=== PATIENT | female | born 1960 | race African-American/Black ===

== ENCOUNTER → 2016-07-25 | Outpatient (CLI) | payer MEDICARE ==
[2016-07-25 12:26] LABS: Basophils # (auto) 0 uL; Basophils % (auto) 0.5 % (0.0-2.0); Eosinophils # (auto) 0.1 uL; Eosinophils % (auto) 1.8 % (0.0-7.0); Hematocrit 41.1 % (36.0-46.0); Hemoglobin 13.5 g/dL (12.2-16.2); Lymphocytes # (auto) 1.6 uL; Lymphocytes % (auto) 41.9 % (10.0-50.0); Mean Corpuscular Hemoglobin 30.8 pg (28.0-32.0); Mean Corpuscular Hgb Conc. 32.8 g/dL (32.0-36.0); Mean Platelet Volume 8.6 fL (7.4-10.4); Monocytes # (auto) 0.3 uL; Monocytes % (auto) 8.7 % (0.0-12.0); Neutrophils # (auto) 1.8 uL; Neutrophils % (auto) 47.1 % (37.0-80.0); Platelet Count (auto) 228 10^3/uL (140-450); White Blood Cell 3.8 10^3/uL (4.4-10.8)
[2016-07-25 13:08] LABS: Albumin 3.7 g/dL (3.4-5.0); BUN/Creatinine Ratio 14.3; Bilirubin, Total 0.4 mg/dL (0.2-1.0); Calcium 8.9 mg/dL (8.5-10.1); Potassium 3.7 mmol/L (3.5-5.1); Total Protein 7.5 g/dL (6.4-8.2)
[2016-07-25 13:30] LABS: Urine Bilirubin Negative (Negative); Urine Blood Negative /uL (Negative); Urine Color Yellow (Yellow); Urine Glucose Normal (Normal); Urine Ketone Negative (Negative); Urine Mucus FEW (None Seen); Urine Nitrite Negative (Negative); Urine RBC 1 /hpf (0 - 4); Urine Squamous Epithelial Cell MOD /hpf (<5); Urine pH 6.5 (5.0-8.0)
== END | disposition home or self-care (01) ==
LOC: LAB 11:28
PROVIDERS: ATTEND Internal Medicine
DX: Z00.00 Encounter for general adult medical examination without abnormal findings (principal); I10 Essential (primary) hypertension; E11.9 Type 2 diabetes mellitus without complications
CPT/HCPCS: 36415; 80053; 80061; 81001; 82043; 83036; 84443; 85025

== ENCOUNTER → 2018-07-03 | Outpatient (CLI) | payer MEDICARE, MEDICAID ==
[2018-07-03 08:48] LABS: Basophils # (auto) 0 uL; Basophils % (auto) 1.2 % (0.0-2.0); Eosinophils # (auto) 0.1 uL; Eosinophils % (auto) 1.9 % (0.0-7.0); Hematocrit 44.1 % (36.0-46.0); Hemoglobin 14.5 g/dL (12.2-16.2); Lymphocytes # (auto) 1.1 uL; Lymphocytes % (auto) 31.2 % (10.0-50.0); Mean Corpuscular Hemoglobin 31.2 pg (28.0-32.0); Mean Corpuscular Hgb Conc. 32.9 g/dL (32.0-36.0); Monocytes # (auto) 0.3 uL; Monocytes % (auto) 9.3 % (0.0-12.0); Neutrophils % (auto) 56.4 % (37.0-80.0); Platelet Count (auto) 177 10^3/uL (140-450); Red Blood Cells 4.64 10^6/uL (4.0-5.20); White Blood Cell 3.6 10^3/uL (4.4-10.8)
[2018-07-03 09:56] LABS: Albumin 4.1 g/dL (3.4-5.0); Potassium 3.9 mmol/L (3.5-5.1)
[2018-07-03 10:04] LABS: BUN/Creatinine Ratio 15.9; Bilirubin, Total 0.7 mg/dL (0.2-1.0); Calcium 9.8 mg/dL (8.5-10.1); Total Protein 8.1 g/dL (6.4-8.2)
== END | disposition home or self-care (01) ==
LOC: LAB 08:22
PROVIDERS: ATTEND Physician Assistant
DX: E11.9 Type 2 diabetes mellitus without complications (principal); E78.2 Mixed hyperlipidemia; I10 Essential (primary) hypertension; M65.20 Calcific tendinitis, unspecified site
CPT/HCPCS: 36415; 80053; 80061; 83036; 85025

== ENCOUNTER 2018-08-24 11:41 | Emergency (ER) | payer MEDICARE, MEDICAID ==
[~2018-08-24] VITALS: Ht 152.4 cm; Wt 76.7 kg
[2018-08-24] MEDS ORDERED: ASPirin 81 mg TAB PO ONE ×3 (11:45→13:15)
[2018-08-24 12:12] LABS: Basophils # (auto) 0 uL; Basophils % (auto) 0.6 % (0.0-2.0); Eosinophils # (auto) 0 uL; Eosinophils % (auto) 0.7 % (0.0-7.0); Hematocrit 43.4 % (36.0-46.0); Hemoglobin 14.3 g/dL (12.2-16.2); Lymphocytes # (auto) 1.4 uL; Lymphocytes % (auto) 30.8 % (10.0-50.0); Mean Corpuscular Hemoglobin 31.8 pg (28.0-32.0); Mean Corpuscular Hgb Conc. 32.9 g/dL (32.0-36.0); Mean Corpuscular Volume 96.6 fL (80.0-100.0); Monocytes # (auto) 0.3 uL; Monocytes % (auto) 6.2 % (0.0-12.0); Neutrophils # (auto) 2.8 uL; Neutrophils % (auto) 61.7 % (37.0-80.0); Nucleated Red Blood Cells % 0.2 %; Platelet Count (auto) 204 10^3/uL (140-450); Red Cell Distribution Width 15.4 % (11.8-14.3); White Blood Cell 4.6 10^3/uL (4.4-10.8)
[2018-08-24 12:29] LABS: Alanine Aminotransferase 98 U/L (13-56); Albumin 4.4 g/dL (3.4-5.0); Anion Gap 8 (5-15); Blood Urea Nitrogen 16 mg/dL (7-18); Calcium 9.5 mg/dL (8.5-10.1); Carbon Dioxide 29 mmol/L (21-32); Chloride 104 mmol/L (98-107); Glucose 97 mg/dL (74-106); Magnesium 2.1 mg/dL (1.6-2.6); Potassium 3.8 mmol/L (3.5-5.1); Sodium 141 mmol/L (136-145)
[2018-08-24 12:34] LABS: Alkaline Phosphatase 68 U/L (45-117); Aspartate Aminotransferase 59 U/L (15-37); BUN/Creatinine Ratio 19.5; Bilirubin, Total 0.7 mg/dL (0.2-1.0); GFR African American 92 mL/min; GFR Non-African American 76 mL/min; Total Protein 8.4 g/dL (6.4-8.2)
[2018-08-24 15:21] VITALS: BP 131/84
== END 2018-08-24 16:59 | disposition left against medical advice (07) ==
LOC: ER 11:43
DX: R07.9 Chest pain, unspecified (principal); E11.9 Type 2 diabetes mellitus without complications; E78.5 Hyperlipidemia, unspecified; I10 Essential (primary) hypertension; Z91.018 Allergy to other foods
CPT/HCPCS: 36415; 71046; 80053; 83735; 84484; 85025; 93005

== ENCOUNTER → 2018-10-12 | Outpatient (CLI) | payer MEDICARE, MEDICAID ==
[2018-10-12 10:30] LABS: Basophils # (auto) 0 uL; Eosinophils # (auto) 0.1 uL; Hematocrit 40.6 % (36.0-46.0); Hemoglobin 13.4 g/dL (12.2-16.2); Lymphocytes # (auto) 1.5 uL; Mean Corpuscular Hemoglobin 31.8 pg (28.0-32.0); Mean Corpuscular Hgb Conc. 33.1 g/dL (32.0-36.0); Mean Corpuscular Volume 96.1 fL (80.0-100.0); Monocytes # (auto) 0.4 uL; Nucleated Red Blood Cells % 0.1 %; Platelet Count (auto) 210 10^3/uL (140-450); Red Blood Cells 4.22 10^6/uL (4.0-5.20); Red Cell Distribution Width 14.2 % (11.8-14.3)
[2018-10-12 10:57] LABS: Albumin 3.8 g/dL (3.4-5.0); Calcium 9.4 mg/dL (8.5-10.1)
[2018-10-12 11:01] LABS: BUN/Creatinine Ratio 23.7; Bilirubin, Total 0.3 mg/dL (0.2-1.0); Total Protein 7.2 g/dL (6.4-8.2)
== END | disposition home or self-care (01) ==
LOC: LAB 09:33
PROVIDERS: ATTEND Internal Medicine
DX: E78.2 Mixed hyperlipidemia (principal); E11.9 Type 2 diabetes mellitus without complications; R07.89 Other chest pain
CPT/HCPCS: 36415; 80053; 84443; 85025

== ENCOUNTER → 2018-10-31 | Outpatient (CLI) | payer MEDICARE, MEDICAID | END | disposition home or self-care (01) | LOC: XYW 09:27 | PROVIDERS: ATTEND Internal Medicine | DX: R07.9 Chest pain, unspecified (principal) | CPT/HCPCS: 93306 ==

== ENCOUNTER → 2020-12-14 | Outpatient (CLI) | payer MEDICAID, MEDICARE, OTHER ==
[2020-12-14 12:20] LABS: Basophils # (auto) 0 10 ^3/uL (0-0.2); Basophils % (auto) 0.7 % (0.0-2.0); Eosinophils # (auto) 0.1 10 ^3/uL (0-0.8); Eosinophils % (auto) 2.4 % (0.0-7.0); Hematocrit 41.3 % (36.0-46.0); Hemoglobin 13.6 g/dL (12.2-16.2); Lymphocytes # (auto) 1.3 10 ^3/uL (0.4-5.4); Lymphocytes % (auto) 42.5 % (10.0-50.0); Mean Corpuscular Hemoglobin 31.4 pg (28.0-32.0); Mean Corpuscular Hgb Conc. 32.9 g/dL (32.0-36.0); Mean Corpuscular Volume 95.3 fL (80.0-100.0); Monocytes # (auto) 0.3 10 ^3/uL (0-1.3); Monocytes % (auto) 8.7 % (0.0-12.0); Neutrophils # (auto) 1.4 10 ^3/uL (1.6-8.6); Neutrophils % (auto) 45.7 % (37.0-80.0); Red Blood Cells 4.33 10^6/uL (4.0-5.20); Red Cell Distribution Width 14.7 % (11.8-14.3); White Blood Cell 3.1 10^3/uL (4.4-10.8)
[2020-12-14 13:19] LABS: Albumin 3.5 g/dL (3.4-5.0); Calcium 9.4 mg/dL (8.5-10.1); Potassium 3.5 mmol/L (3.5-5.1)
[2020-12-14 13:23] LABS: BUN/Creatinine Ratio 26.1; Bilirubin, Total 0.7 mg/dL (0.2-1.0); Total Protein 7.9 g/dL (6.4-8.2)
== END | disposition home or self-care (01) ==
LOC: LAB 11:56
PROVIDERS: ATTEND Nurse Practitioner Family
DX: Z12.11 Encounter for screening for malignant neoplasm of colon (principal); I10 Essential (primary) hypertension; E11.9 Type 2 diabetes mellitus without complications; E78.2 Mixed hyperlipidemia
CPT/HCPCS: 36415; 80053; 80061; 82043; 83036; 85025

== ENCOUNTER 2021-05-18 16:16 | Emergency (ER) | payer OTHER, MEDICAID, MEDICARE ==
[~2021-05-18] VITALS: Ht 152.4 cm; Wt 77.1 kg
[2021-05-19] MEDS ORDERED: ALBUAER3 IN (07:59)
[2021-05-19] MEDS ORDERED: PRED10TA PO (07:59)
[2021-05-19] MEDS ORDERED: DOXY-286 PO (07:59)
[2021-05-19 08:13] VITALS: BP 187/91
== END 2021-05-19 08:19 | disposition home or self-care (01) ==
LOC: ER 16:16
DX: U07.1 COVID-19 (principal); J06.9 Acute upper respiratory infection, unspecified
CPT/HCPCS: 36415; 87426

== ENCOUNTER 2021-05-25 07:02 | Emergency (ER) | payer OTHER, MEDICAID ==
[~2021-05-25] VITALS: Ht 152.4 cm; Wt 75.3 kg
[~2021-05-25 07:02] MED LIST: ALBUAER3 IN; DOXY-286 PO; PRED10TA PO
[2021-05-25 08:02] VITALS: BP 178/86
[2021-05-25] MEDS ORDERED: AZIT500T66 PO (08:15)
[2021-05-25] MEDS ORDERED: cefTRIAXone SOD 1,000 MG VL IM ONE (08:15)
[2021-05-25] MEDS ORDERED: METH4PAK PO (08:15)
== END 2021-05-25 08:25 | disposition home or self-care (01) ==
LOC: ER 07:02
DX: U07.1 COVID-19 (principal); J03.90 Acute tonsillitis, unspecified; E11.9 Type 2 diabetes mellitus without complications; I10 Essential (primary) hypertension; E78.5 Hyperlipidemia, unspecified
CPT/HCPCS: 71045; 96372; 99283; J0696

== ENCOUNTER 2021-06-07 03:20 | Emergency (ER) | payer OTHER, MEDICAID ==
[~2021-06-07] VITALS: Ht 152.4 cm; Wt 77.1 kg
[~2021-06-07 03:20] MED LIST changes: +AZIT500T66 PO; +METH4PAK PO
[2021-06-07 05:10] LABS: Basophils # (auto) 0 10 ^3/uL (0-0.2); Basophils % (auto) 0.5 % (0.0-2.0); Eosinophils # (auto) 0.1 10 ^3/uL (0-0.8); Eosinophils % (auto) 0.9 % (0.0-7.0); Hematocrit 41.4 % (36.0-46.0); Hemoglobin 13.6 g/dL (12.2-16.2); Lymphocytes # (auto) 1.3 10 ^3/uL (0.4-5.4); Lymphocytes % (auto) 22.7 % (10.0-50.0); Mean Corpuscular Hemoglobin 31.4 pg (28.0-32.0); Mean Corpuscular Hgb Conc. 32.8 g/dL (32.0-36.0); Mean Corpuscular Volume 95.9 fL (80.0-100.0); Monocytes # (auto) 0.4 10 ^3/uL (0-1.3); Monocytes % (auto) 7.2 % (0.0-12.0); Neutrophils # (auto) 3.9 10 ^3/uL (1.6-8.6); Neutrophils % (auto) 68.7 % (37.0-80.0); Nucleated Red Blood Cells % 0.1 %; Red Blood Cells 4.31 10^6/uL (4.0-5.20); Red Cell Distribution Width 13.8 % (11.8-14.3); White Blood Cell 5.7 10^3/uL (4.4-10.8)
[2021-06-07 05:22] LABS: Potassium 3.8 mmol/L (3.5-5.1)
[2021-06-07 05:33] LABS: Albumin 3.8 g/dL (3.4-5.0); BUN/Creatinine Ratio 17.5; Bilirubin, Total 0.2 mg/dL (0.2-1.0); Calcium 9.1 mg/dL (8.5-10.1); Total Protein 7.6 g/dL (6.4-8.2)
[2021-06-07 10:32] VITALS: BP 144/82
[2021-06-07] MEDS ORDERED: PANT40TA2 PO (11:45)
== END 2021-06-07 13:16 | disposition home or self-care (01) ==
LOC: ER 03:20
DX: K29.70 Gastritis, unspecified, without bleeding (principal); E11.9 Type 2 diabetes mellitus without complications; I10 Essential (primary) hypertension; E78.5 Hyperlipidemia, unspecified; Z20.822 Contact with and (suspected) exposure to COVID-19; Z90.710 Acquired absence of both cervix and uterus; Z98.890 Other specified postprocedural states
CPT/HCPCS: 36415; 71045; 80053; 84484; 85025; 87426; 93005

== ENCOUNTER 2021-07-07 17:35 | Emergency (ER) | payer OTHER, MEDICAID ==
[~2021-07-07] VITALS: Ht 152.4 cm; Wt 78.0 kg
[~2021-07-07 17:35] MED LIST changes: +PANT40TA2 PO
[2021-07-07] MEDS ORDERED: METOCLOPRAMIDE HCL 5MG/ml INJ 2ml VIAL IM ONE (20:45)
[2021-07-07] MEDS ORDERED: KETOROLAC TROMETH 30 MG/ML 1ML VIAL IM ONE (20:45)
[2021-07-07 21:50] VITALS: BP 173/83
== END 2021-07-07 21:50 | disposition home or self-care (01) ==
LOC: ER 17:35
DX: I10 Essential (primary) hypertension (principal); R51.9 Headache, unspecified; E11.9 Type 2 diabetes mellitus without complications; E78.5 Hyperlipidemia, unspecified; Z90.710 Acquired absence of both cervix and uterus; Z79.899 Other long term (current) drug therapy
CPT/HCPCS: 93005; 96372; 99284; J1885; J2765

== ENCOUNTER 2021-08-28 08:23 | Emergency (ER) | payer OTHER, MEDICAID ==
[~2021-08-28] VITALS: Ht 152.4 cm; Wt 73.5 kg
[2021-08-28] MEDS ORDERED: ASPirin 81 mg TAB PO ONE (08:45)
[2021-08-28] MEDS ORDERED: NITROGLYCERIN 0.4 MG SL TAB SL ONE (09:15)
[2021-08-28 09:37] VITALS: BP 105/54
[2021-08-28 10:16] LABS: Albumin 3.7 g/dL (3.4-5.0); Calcium 9.6 mg/dL (8.5-10.1); Potassium 3.3 mmol/L (3.5-5.1)
[2021-08-28 10:18] LABS: Basophils # (auto) 0 10 ^3/uL (0-0.2); Basophils % (auto) 0.4 % (0.0-2.0); Eosinophils # (auto) 0 10 ^3/uL (0-0.8); Hemoglobin 13.4 g/dL (12.2-16.2); Lymphocytes # (auto) 1.2 10 ^3/uL (0.4-5.4); Lymphocytes % (auto) 30.5 % (10.0-50.0); Mean Corpuscular Hemoglobin 31.2 pg (28.0-32.0); Mean Corpuscular Hgb Conc. 33.4 g/dL (32.0-36.0); Mean Corpuscular Volume 93.3 fL (80.0-100.0); Monocytes # (auto) 0.3 10 ^3/uL (0-1.3); Monocytes % (auto) 8.7 % (0.0-12.0); Neutrophils # (auto) 2.3 10 ^3/uL (1.6-8.6); Neutrophils % (auto) 59.4 % (37.0-80.0); Nucleated Red Blood Cells % 0.1 %; Red Blood Cells 4.29 10^6/uL (4.0-5.20); Red Cell Distribution Width 13.1 % (11.8-14.3); White Blood Cell 3.8 10^3/uL (4.4-10.8)
[2021-08-28 10:20] LABS: BUN/Creatinine Ratio 20.8; Bilirubin, Total 0.4 mg/dL (0.2-1.0); Total Protein 7.7 g/dL (6.4-8.2)
[2021-08-28] MEDS ORDERED: POTASSIUM EFFERVESENT TAB 25 MEQ PO ONE (11:00)
== END 2021-08-28 12:15 | disposition home or self-care (01) ==
LOC: ER 08:23
DX: R07.89 Other chest pain (principal); I10 Essential (primary) hypertension; E87.6 Hypokalemia; E11.9 Type 2 diabetes mellitus without complications; E78.5 Hyperlipidemia, unspecified; Z90.710 Acquired absence of both cervix and uterus; Z79.2 Long term (current) use of antibiotics; Z79.899 Other long term (current) drug therapy; Z91.018 Allergy to other foods
CPT/HCPCS: 36415; 71045; 80053; 83880; 84484; 85025; 93005

== ENCOUNTER → 2021-09-16 | Outpatient (CLI) | payer OTHER, MEDICAID, MEDICARE ==
[2021-09-16 11:48] LABS: Albumin 3.9 g/dL (3.4-5.0); Calcium 9.8 mg/dL (8.5-10.1); Potassium 3.8 mmol/L (3.5-5.1)
[2021-09-16 11:52] LABS: BUN/Creatinine Ratio 16.9; Bilirubin, Total 0.5 mg/dL (0.2-1.0); Total Protein 8.2 g/dL (6.4-8.2)
== END | disposition home or self-care (01) ==
LOC: LAB 11:08
PROVIDERS: ATTEND Nurse Practitioner Family
DX: E78.6 Lipoprotein deficiency (principal)
CPT/HCPCS: 36415; 80053

== ENCOUNTER 2021-09-27 15:31 | Inpatient (IN) | payer OTHER, MEDICAID ==
[~2021-09-27] VITALS: Ht 152.4 cm; Wt 80.3 kg
[2021-09-27] MEDS ORDERED: ASPirin 81 mg TAB PO ONE (15:45)
[2021-09-27 16:54] LABS: Basophils # (auto) 0 10 ^3/uL (0-0.2); Basophils % (auto) 0.5 % (0.0-2.0); Eosinophils # (auto) 0.2 10 ^3/uL (0-0.8); Eosinophils % (auto) 3.9 % (0.0-7.0); Hematocrit 38.5 % (36.0-46.0); Hemoglobin 12.9 g/dL (12.2-16.2); Lymphocytes # (auto) 1.5 10 ^3/uL (0.4-5.4); Lymphocytes % (auto) 34.2 % (10.0-50.0); Mean Corpuscular Hemoglobin 31.4 pg (28.0-32.0); Mean Corpuscular Hgb Conc. 33.4 g/dL (32.0-36.0); Mean Corpuscular Volume 94.1 fL (80.0-100.0); Monocytes # (auto) 0.4 10 ^3/uL (0-1.3); Monocytes % (auto) 9.1 % (0.0-12.0); Neutrophils # (auto) 2.2 10 ^3/uL (1.6-8.6); Neutrophils % (auto) 52.3 % (37.0-80.0); Nucleated Red Blood Cells % 0.1 %; Red Cell Distribution Width 14.2 % (11.8-14.3); White Blood Cell 4.3 10^3/uL (4.4-10.8)
[2021-09-27 17:06] LABS: Albumin 3.6 g/dL (3.4-5.0); Calcium 9.4 mg/dL (8.5-10.1); Potassium 4.1 mmol/L (3.5-5.1)
[2021-09-27 17:08] LABS: BUN/Creatinine Ratio 18.3
[2021-09-27 17:11] LABS: Bilirubin, Total 0.4 mg/dL (0.2-1.0); Total Protein 7.1 g/dL (6.4-8.2)
[2021-09-27] MEDS ORDERED: NITROGLYCERIN 0.4 MG SL TAB SL ONE (17:30)
[2021-09-28 02:12] LABS: Urine Bacteria NONE SEEN /hpf (None Seen); Urine Blood Negative /uL (Negative); Urine Specific Gravity 1.014 (1.001-1.035); Urine WBC <1 /hpf (0 - 5)
[2021-09-28] MEDS ORDERED: NITROGLYCERIN 0.4 MG SL TAB SL PRN (03:00)
[2021-09-28] MEDS ORDERED: MORPHINE SULFATE INJECTION 2 MG/ML SYRG IV PRN (03:00)
[2021-09-28] MEDS ORDERED: ACETAMINOPHEN 325 MG TAB PO PRN (03:00)
[2021-09-28] MEDS ORDERED: ONDANSETRON HCL 4 MG/2 ML VIAL IV PRN (03:00)
[2021-09-28 05:29] VITALS: BP 114/59
[2021-09-28 05:44] VITALS: BP 114/59
[2021-09-28 08:59] VITALS: BP 111/55
[2021-09-28] MEDS: PANTOPRAZOLE 40 MG TAB PO SCH (10:45)
[2021-09-28] MEDS: ASPirin 81 mg TAB PO SCH (10:45)
[2021-09-28] MEDS: ENOXAPARIN SOD 40 MG/0.4 ML SYRINGE SC SCH (10:45)
[2021-09-28] MEDS: HCTZ 25 MG TAB PO SCH (10:47)
[2021-09-28] MEDS: LOSARTAN POTASSIUM 25 MG TAB PO SCH (13:00)
[2021-09-28 13:09] VITALS: BP 105/60
[2021-09-28 15:41] LABS: Alcohol, Urine < 3.0 mg/dL (0-10); Amphetamine Screen, Urine NEGATIVE (NEGATIVE); Barbiturate Scree,Urine NEGATIVE (NEGATIVE); Benzodiazephine Screen, Urine NEGATIVE (NEGATIVE); Cannabinoid Screen, Urine POSITIVE (NEGATIVE); Cocaine Screen, Urine NEGATIVE (NEGATIVE); Opiate Scree,Urine NEGATIVE (NEGATIVE); Phencyclidine Screen, Urine NEGATIVE (NEGATIVE)
[2021-09-28 17:05] VITALS: BP 103/56
[2021-09-28 19:21] LABS: Cholesterol 167 mg/dL (< 200); HDL Cholesterol 68 mg/dL (40-59); LDL Cholesterol 90 mg/dL (< 100); Triglycerides 76 mg/dL (< 150)
[2021-09-28] MEDS ORDERED: ATORVASTATIN 20 MG TAB PO SCH (22:00)
[2021-09-29] MEDS ORDERED: ADENOSINE 67 MG in GIVE UN-DILUTED 0 ML IV ONE (07:45)
[2021-09-29 08:50] VITALS: BP 109/54
[2021-09-29 08:55] LABS: Basophils # (auto) 0 10 ^3/uL (0-0.2); Basophils % (auto) 0.5 % (0.0-2.0); Eosinophils # (auto) 0.1 10 ^3/uL (0-0.8); Eosinophils % (auto) 2.9 % (0.0-7.0); Hematocrit 41.7 % (36.0-46.0); Lymphocytes # (auto) 1.8 10 ^3/uL (0.4-5.4); Lymphocytes % (auto) 38.6 % (10.0-50.0); Mean Corpuscular Hemoglobin 31.9 pg (28.0-32.0); Mean Corpuscular Hgb Conc. 34.1 g/dL (32.0-36.0); Mean Corpuscular Volume 93.6 fL (80.0-100.0); Monocytes # (auto) 0.3 10 ^3/uL (0-1.3); Neutrophils # (auto) 2.4 10 ^3/uL (1.6-8.6); Nucleated Red Blood Cells % 0.2 %; Red Blood Cells 4.46 10^6/uL (4.0-5.20); Red Cell Distribution Width 14.1 % (11.8-14.3); White Blood Cell 4.7 10^3/uL (4.4-10.8)
[2021-09-29 08:57] LABS: BUN/Creatinine Ratio 23.8; Calcium 9.1 mg/dL (8.5-10.1); Potassium 3.5 mmol/L (3.5-5.1)
[2021-09-29 09:05] LABS: Hemoglobin 14.2 g/dL (12.2-16.2)
[2021-09-29] MEDS: PANTOPRAZOLE 40 MG TAB PO SCH (09:59)
[2021-09-29] MEDS: HCTZ 25 MG TAB PO SCH (10:00)
[2021-09-29] MEDS: LOSARTAN POTASSIUM 25 MG TAB PO SCH (10:01)
[2021-09-29] MEDS: ASPirin 81 mg TAB PO SCH (10:02)
[2021-09-29] MEDS: ENOXAPARIN SOD 40 MG/0.4 ML SYRINGE SC SCH (10:03)
[2021-09-29] MEDS ORDERED: ERGOCALCIFEROL 50,000 UNIT(1.25MG) CAP PO SCH (10:15)
[2021-09-29] MEDS ORDERED: LOS25T PO (10:16)
[2021-09-29] MEDS ORDERED: ASPI1CHW15 PO (10:16)
[2021-09-29] MEDS ORDERED: ERGO1CAP23 PO (10:16)
[2021-09-29] MEDS ORDERED: ATOR20TA50 PO (10:16)
== END 2021-09-29 13:53 | disposition home or self-care (01) | DRG 303 ==
LOC: ER 15:31 → TELE 09-28 02:58 → TELE-EAST 09-28 04:15
PROVIDERS: ADMIT Nurse Practitioner; ATTEND Internal Medicine
DX: I25.110 Atherosclerotic heart disease of native coronary artery with unstable angina pectoris (principal); I13.0 Hypertensive heart and chronic kidney disease with heart failure and stage 1 through stage 4 chronic kidney disease, or unspecified chronic kidney disease; E66.9 Obesity, unspecified; E55.9 Vitamin D deficiency, unspecified; E11.22 Type 2 diabetes mellitus with diabetic chronic kidney disease; E78.5 Hyperlipidemia, unspecified; I50.9 Heart failure, unspecified; N18.9 Chronic kidney disease, unspecified; F41.9 Anxiety disorder, unspecified; Z20.822 Contact with and (suspected) exposure to COVID-19; Z90.710 Acquired absence of both cervix and uterus; Z91.018 Allergy to other foods; Z68.34 Body mass index [BMI] 34.0-34.9, adult
CPT/HCPCS: 36415; 71045; 78452; 80048; 80053; 80061; 80307; 81001; 82043; 82306; 83036; 84443; 84484; 85025; 85379; 93017; 93306; 96365; G0378; J0153

== ENCOUNTER 2021-10-06 21:28 | Emergency (ER) | payer OTHER, MEDICAID ==
[~2021-10-06] VITALS: Ht 152.4 cm; Wt 77.1 kg
[~2021-10-06 21:28] MED LIST changes: -ALBUAER3 IN; +ASPI1CHW15 PO; +ATOR20TA50 PO; -AZIT500T66 PO; +ERGO1CAP23 PO; +LOS25T PO; -METH4PAK PO; -PANT40TA2 PO; -PRED10TA PO
[2021-10-06 21:48] VITALS: BP 135/81
== END 2021-10-06 22:22 | disposition left against medical advice (07) ==
LOC: ER 21:28
DX: R22.0 Localized swelling, mass and lump, head (principal); R13.10 Dysphagia, unspecified; Z53.21 Procedure and treatment not carried out due to patient leaving prior to being seen by health care provider

== ENCOUNTER → 2021-11-11 | Outpatient (CLI) | payer OTHER ==
[2021-11-11 12:18] LABS: Basophils # (auto) 0 10 ^3/uL (0-0.2); Basophils % (auto) 0.5 % (0.0-2.0); Eosinophils # (auto) 0.1 10 ^3/uL (0-0.8); Eosinophils % (auto) 2.4 % (0.0-7.0); Hematocrit 41.2 % (36.0-46.0); Hemoglobin 13.2 g/dL (12.2-16.2); Lymphocytes # (auto) 1.1 10 ^3/uL (0.4-5.4); Lymphocytes % (auto) 40.4 % (10.0-50.0); Mean Corpuscular Hgb Conc. 32.1 g/dL (32.0-36.0); Mean Corpuscular Volume 93.3 fL (80.0-100.0); Monocytes # (auto) 0.3 10 ^3/uL (0-1.3); Monocytes % (auto) 11.6 % (0.0-12.0); Neutrophils # (auto) 1.2 10 ^3/uL (1.6-8.6); Neutrophils % (auto) 45.1 % (37.0-80.0); Red Blood Cells 4.42 10^6/uL (4.0-5.20); Red Cell Distribution Width 13.9 % (11.8-14.3); White Blood Cell 2.7 10^3/uL (4.4-10.8)
[2021-11-11 12:22] LABS: Urine Bacteria NONE SEEN /hpf (None Seen); Urine Blood Negative /uL (Negative); Urine Mucus FEW (None Seen); Urine Specific Gravity 1.023 (1.001-1.035); Urine WBC <1 /hpf (0 - 5)
[2021-11-11 13:29] LABS: Calcium 9.3 mg/dL (8.5-10.1); Potassium 3.8 mmol/L (3.5-5.1)
[2021-11-11 13:36] LABS: BUN/Creatinine Ratio 17.7; Bilirubin, Total 0.6 mg/dL (0.2-1.0); Total Protein 7.6 g/dL (6.4-8.2)
== END | disposition home or self-care (01) ==
LOC: LAB 11:51
PROVIDERS: ATTEND Nurse Practitioner Family
DX: R07.89 Other chest pain (principal); R10.9 Unspecified abdominal pain
CPT/HCPCS: 36415; 80053; 81001; 85025

== ENCOUNTER 2021-11-12 19:52 | Inpatient (IN) | payer OTHER, MEDICAID ==
[~2021-11-12] VITALS: Ht 152.4 cm; Wt 74.1 kg
[2021-11-12 22:07] LABS: Basophils # (auto) 0 10 ^3/uL (0-0.2); Basophils % (auto) 0.3 % (0.0-2.0); Eosinophils # (auto) 0.1 10 ^3/uL (0-0.8); Eosinophils % (auto) 2.4 % (0.0-7.0); Lymphocytes # (auto) 1.6 10 ^3/uL (0.4-5.4); Mean Corpuscular Hgb Conc. 32.5 g/dL (32.0-36.0); Mean Corpuscular Volume 92.2 fL (80.0-100.0); Monocytes # (auto) 0.4 10 ^3/uL (0-1.3); Neutrophils # (auto) 1.8 10 ^3/uL (1.6-8.6); Neutrophils % (auto) 47.3 % (37.0-80.0); Nucleated Red Blood Cells % 0.1 %; Red Blood Cells 4.34 10^6/uL (4.0-5.20); Red Cell Distribution Width 13.6 % (11.8-14.3); White Blood Cell 3.9 10^3/uL (4.4-10.8)
[2021-11-12 22:17] LABS: INR 0.96 (0.9-1.15)
[2021-11-12 22:23] LABS: BUN/Creatinine Ratio 22.5; Calcium 9.7 mg/dL (8.5-10.1); Magnesium 2.4 mg/dL (1.6-2.6); Potassium 4.2 mmol/L (3.5-5.1)
[2021-11-12 22:26] LABS: Bilirubin, Total 0.3 mg/dL (0.2-1.0); Total Protein 7.4 g/dL (6.4-8.2)
[2021-11-12] MEDS ORDERED: ASPirin 325 MG TAB PO ONE (22:30)
[2021-11-13] MEDS ORDERED: ZOLPIDEM TARTRATE 5 MG TAB PO PRN (01:45)
[2021-11-13] MEDS ORDERED: ACETAMINOPHEN 325 MG TAB PO PRN (01:45)
[2021-11-13] MEDS ORDERED: ONDANSETRON HCL 4 MG/2 ML VIAL IV PRN (01:45)
[2021-11-13] MEDS ORDERED: MORPHINE SULFATE 4 MG/ML SYR/VIAL IV PRN (01:45)
[2021-11-13] MEDS ORDERED: SODIUM CHLORIDE 0.9% 1,000 ML IV SCH ×2 (01:45→17:30)
[2021-11-13] MEDS ORDERED: NITROGLYCERIN 0.4 MG SL TAB SL PRN (01:45)
[2021-11-13 05:06] LABS: Basophils # (auto) 0 10 ^3/uL (0-0.2); Basophils % (auto) 0.4 % (0.0-2.0); Eosinophils # (auto) 0.1 10 ^3/uL (0-0.8); Eosinophils % (auto) 2.4 % (0.0-7.0); Hematocrit 40.3 % (36.0-46.0); Hemoglobin 13.4 g/dL (12.2-16.2); Lymphocytes # (auto) 1.9 10 ^3/uL (0.4-5.4); Lymphocytes % (auto) 47.9 % (10.0-50.0); Mean Corpuscular Hemoglobin 31.1 pg (28.0-32.0); Mean Corpuscular Hgb Conc. 33.3 g/dL (32.0-36.0); Mean Corpuscular Volume 93.3 fL (80.0-100.0); Monocytes # (auto) 0.4 10 ^3/uL (0-1.3); Neutrophils # (auto) 1.6 10 ^3/uL (1.6-8.6); Neutrophils % (auto) 39.3 % (37.0-80.0); Red Blood Cells 4.32 10^6/uL (4.0-5.20); Red Cell Distribution Width 13.9 % (11.8-14.3); White Blood Cell 3.9 10^3/uL (4.4-10.8)
[2021-11-13 05:21] LABS: Calcium 9.6 mg/dL (8.5-10.1); Potassium 3.9 mmol/L (3.5-5.1)
[2021-11-13 05:23] LABS: BUN/Creatinine Ratio 18.9
[2021-11-13] MEDS ORDERED: METOPROLOL TARTRATE 25 MG TAB PO SCH (10:00)
[2021-11-13] MEDS ORDERED: ENOXAPARIN SOD 60 MG/0.6 ML SYRINGE SC SCH (10:00)
[2021-11-13] MEDS ORDERED: CLOPIDOGREL BISULFATE 75 MG TAB PO SCH (10:00)
[2021-11-13] MEDS ORDERED: LISINOPRIL 10 MG TAB PO SCH (10:00)
[2021-11-13] MEDS: ASPirin 81 mg TAB PO SCH (11:59)
[2021-11-13] MEDS: DOCUSATE SOD 100 MG CAP PO SCH (12:11)
[2021-11-13] MEDS ORDERED: hydrALAZINE HCL 20 MG/ML VL IV PRN (17:30)
[2021-11-13] MEDS ORDERED: METF-869 PO (21:19)
[2021-11-13] MEDS ORDERED: HYDR12.56 PO (21:19)
[2021-11-13 22:00] VITALS: BP 119/49
[2021-11-13] MEDS ORDERED: ATORVASTATIN 20 MG TAB PO SCH (22:00)
[2021-11-14 05:00] VITALS: BP 124/54
[2021-11-14 05:48] LABS: Potassium 3.6 mmol/L (3.5-5.1)
[2021-11-14 05:53] LABS: Albumin 3.4 g/dL (3.4-5.0); BUN/Creatinine Ratio 18.2; Calcium 8.5 mg/dL (8.5-10.1); Phosphorus 3.3 mg/dL (2.5-4.90)
[2021-11-14] MEDS: ASPirin 81 mg TAB PO SCH (09:36)
[2021-11-14] MEDS: DOCUSATE SOD 100 MG CAP PO SCH (09:36)
[2021-11-14] MEDS ORDERED: ENOXAPARIN SOD 40 MG/0.4 ML SYRINGE SC SCH (10:00)
[2021-11-14] MEDS ORDERED: LOSARTAN POTASSIUM 25 MG TAB PO SCH (10:00)
== END 2021-11-14 11:27 | disposition left against medical advice (07) | DRG 313 ==
LOC: ER 19:52 → TELE 11-13 01:42 → TELE-WESTW 11-13 20:23
PROVIDERS: ADMIT Hospitalist; ATTEND Hospitalist
DX: R07.9 Chest pain, unspecified (principal); E11.9 Type 2 diabetes mellitus without complications; E78.00 Pure hypercholesterolemia, unspecified; F41.9 Anxiety disorder, unspecified; Z53.29 Procedure and treatment not carried out because of patient's decision for other reasons; I11.0 Hypertensive heart disease with heart failure; I25.119 Atherosclerotic heart disease of native coronary artery with unspecified angina pectoris; I50.9 Heart failure, unspecified; Z20.822 Contact with and (suspected) exposure to COVID-19; Z79.82 Long term (current) use of aspirin; Z90.710 Acquired absence of both cervix and uterus; Z82.49 Family history of ischemic heart disease and other diseases of the circulatory system; Z83.3 Family history of diabetes mellitus
CPT/HCPCS: 36415; 71045; 80048; 80053; 80061; 80069; 82306; 82962; 83735; 83880; 84443; 84484; 85025; 85049; 85610; 85730; 96360; 96361; 96372; G0378

== ENCOUNTER → 2021-11-24 | Outpatient (CLI) | payer OTHER, MEDICAID, MEDICARE ==
[~2021-11-24] MED LIST changes: +HYDR12.56 PO; +METF-869 PO
[2021-11-24 10:50] LABS: Basophils # (auto) 0 10 ^3/uL (0-0.2); Basophils % (auto) 0.4 % (0.0-2.0); Eosinophils # (auto) 0.1 10 ^3/uL (0-0.8); Eosinophils % (auto) 1.8 % (0.0-7.0); Hematocrit 39.1 % (36.0-46.0); Hemoglobin 12.7 g/dL (12.2-16.2); Lymphocytes # (auto) 1.2 10 ^3/uL (0.4-5.4); Lymphocytes % (auto) 32.9 % (10.0-50.0); Mean Corpuscular Hgb Conc. 32.4 g/dL (32.0-36.0); Mean Corpuscular Volume 92.6 fL (80.0-100.0); Monocytes # (auto) 0.3 10 ^3/uL (0-1.3); Monocytes % (auto) 9.1 % (0.0-12.0); Neutrophils # (auto) 2.1 10 ^3/uL (1.6-8.6); Neutrophils % (auto) 55.8 % (37.0-80.0); Nucleated Red Blood Cells % 0.1 %; Red Blood Cells 4.22 10^6/uL (4.0-5.20); Red Cell Distribution Width 14.1 % (11.8-14.3); White Blood Cell 3.7 10^3/uL (4.4-10.8)
== END | disposition home or self-care (01) ==
LOC: LAB 10:29
PROVIDERS: ATTEND Nurse Practitioner Family
DX: D72.819 Decreased white blood cell count, unspecified (principal)
CPT/HCPCS: 36415; 85025; 85652; 86038

== ENCOUNTER 2021-11-28 09:09 | Emergency (ER) | payer OTHER, MEDICAID ==
[2021-11-28 10:57] LABS: Basophils # (auto) 0 10 ^3/uL (0-0.2); Basophils % (auto) 0.7 % (0.0-2.0); Eosinophils # (auto) 0 10 ^3/uL (0-0.8); Eosinophils % (auto) 1.2 % (0.0-7.0); Hematocrit 38.5 % (36.0-46.0); Hemoglobin 12.7 g/dL (12.2-16.2); Lymphocytes # (auto) 0.9 10 ^3/uL (0.4-5.4); Mean Corpuscular Hemoglobin 30.3 pg (28.0-32.0); Mean Corpuscular Hgb Conc. 32.9 g/dL (32.0-36.0); Monocytes # (auto) 0.3 10 ^3/uL (0-1.3); Monocytes % (auto) 8.2 % (0.0-12.0); Neutrophils # (auto) 2.1 10 ^3/uL (1.6-8.6); Neutrophils % (auto) 62.9 % (37.0-80.0); Red Blood Cells 4.19 10^6/uL (4.0-5.20); Red Cell Distribution Width 13.9 % (11.8-14.3); White Blood Cell 3.4 10^3/uL (4.4-10.8)
[2021-11-28 11:11] LABS: Urine Bacteria NONE SEEN /hpf (None Seen); Urine Blood Negative /uL (Negative); Urine Specific Gravity 1.007 (1.001-1.035); Urine WBC 11 /hpf (0 - 5)
[2021-11-28 11:20] VITALS: BP 139/69
[2021-11-28 11:54] LABS: Alkaline Phosphatase 64 U/L (45-117); Anion Gap 7 (5-15); BUN/Creatinine Ratio 16.2; Blood Urea Nitrogen 11 mg/dL (7-18); Carbon Dioxide 27 mmol/L (21-32); Chloride 107 mmol/L (98-107); GFR African American 112 mL/min; GFR Non-African American 93 mL/min; Glucose 106 mg/dL (74-106); Potassium 3.3 mmol/L (3.5-5.1); Sodium 141 mmol/L (136-145)
[2021-11-28 11:55] LABS: Alanine Aminotransferase 23 U/L (13-56); Albumin 3.6 g/dL (3.4-5.0); Aspartate Aminotransferase 18 U/L (15-37); Bilirubin, Total 0.5 mg/dL (0.2-1.0); Calcium 9.8 mg/dL (8.5-10.1); Total Protein 7.2 g/dL (6.4-8.2)
[2021-11-28] MEDS ORDERED: LEVO-28 PO (12:49)
[2021-11-28] MEDS ORDERED: POTASSIUM EFFERVESENT TAB 25 MEQ PO ONE (13:00)
== END 2021-11-28 13:15 | disposition home or self-care (01) ==
LOC: ER 09:09
DX: J44.1 Chronic obstructive pulmonary disease with (acute) exacerbation (principal); E87.6 Hypokalemia; I13.0 Hypertensive heart and chronic kidney disease with heart failure and stage 1 through stage 4 chronic kidney disease, or unspecified chronic kidney disease; E11.22 Type 2 diabetes mellitus with diabetic chronic kidney disease; N18.9 Chronic kidney disease, unspecified; I50.9 Heart failure, unspecified; I25.10 Atherosclerotic heart disease of native coronary artery without angina pectoris; E78.5 Hyperlipidemia, unspecified; Z90.710 Acquired absence of both cervix and uterus
CPT/HCPCS: 36415; 71045; 80053; 81001; 84484; 85025; 93005

== ENCOUNTER → 2021-12-24 | Outpatient (CLI) | payer OTHER, MEDICAID ==
[~2021-12-24] MED LIST changes: +LEVO-28 PO
[2021-12-24 11:14] LABS: Basophils # (auto) 0 10 ^3/uL (0-0.2); Basophils % (auto) 0.4 % (0.0-2.0); Eosinophils # (auto) 0.1 10 ^3/uL (0-0.8); Eosinophils % (auto) 2.7 % (0.0-7.0); Hematocrit 41.3 % (36.0-46.0); Hemoglobin 13.3 g/dL (12.2-16.2); Lymphocytes # (auto) 0.9 10 ^3/uL (0.4-5.4); Lymphocytes % (auto) 29.2 % (10.0-50.0); Mean Corpuscular Hemoglobin 29.6 pg (28.0-32.0); Mean Corpuscular Hgb Conc. 32.3 g/dL (32.0-36.0); Mean Corpuscular Volume 91.7 fL (80.0-100.0); Monocytes # (auto) 0.3 10 ^3/uL (0-1.3); Monocytes % (auto) 9.3 % (0.0-12.0); Neutrophils # (auto) 1.7 10 ^3/uL (1.6-8.6); Neutrophils % (auto) 58.4 % (37.0-80.0); Red Blood Cells 4.51 10^6/uL (4.0-5.20)
[2021-12-24 11:48] LABS: Albumin 3.9 g/dL (3.4-5.0); BUN/Creatinine Ratio 11.8; Calcium 9.6 mg/dL (8.5-10.1); Potassium 3.4 mmol/L (3.5-5.1)
[2021-12-24 11:51] LABS: Bilirubin, Total 0.6 mg/dL (0.2-1.0); Total Protein 7.4 g/dL (6.4-8.2)
[2021-12-24 12:00] LABS: Thyroid Stimulating Hormone 1.85 uIU/mL (0.358-3.74)
[2021-12-24 12:08] LABS: Free T4 (Free Thyroxine) 1.04 ng/dL (0.89-1.76)
[2021-12-24 12:09] LABS: Folate (Folic Acid) 13.97 ng/mL (5.38-24)
== END | disposition home or self-care (01) ==
LOC: LAB 10:47
PROVIDERS: ATTEND Internal Medicine
DX: D64.9 Anemia, unspecified (principal)
CPT/HCPCS: 36415; 80053; 82607; 82746; 83615; 84439; 84443; 85025; 85652; 86038; 86225; 86256; 86703; 86704; 86706; 86708; 86803; 87340

== ENCOUNTER 2021-12-25 19:46 | Emergency (ER) | payer OTHER, MEDICAID ==
[~2021-12-25] VITALS: Ht 152.4 cm; Wt 75.0 kg
[2021-12-25 20:44] LABS: Basophils # (auto) 0.1 10 ^3/uL (0-0.2); Basophils % (auto) 1.1 % (0.0-2.0); Eosinophils # (auto) 0.1 10 ^3/uL (0-0.8); Eosinophils % (auto) 3.2 % (0.0-7.0); Hematocrit 40.5 % (36.0-46.0); Hemoglobin 13.1 g/dL (12.2-16.2); Lymphocytes # (auto) 1.4 10 ^3/uL (0.4-5.4); Lymphocytes % (auto) 30.2 % (10.0-50.0); Mean Corpuscular Hgb Conc. 32.3 g/dL (32.0-36.0); Mean Corpuscular Volume 92.7 fL (80.0-100.0); Monocytes # (auto) 0.4 10 ^3/uL (0-1.3); Monocytes % (auto) 8.1 % (0.0-12.0); Neutrophils # (auto) 2.6 10 ^3/uL (1.6-8.6); Neutrophils % (auto) 57.4 % (37.0-80.0); Red Blood Cells 4.37 10^6/uL (4.0-5.20); Red Cell Distribution Width 13.9 % (11.8-14.3); White Blood Cell 4.6 10^3/uL (4.4-10.8)
[2021-12-25 21:01] LABS: Albumin 3.8 g/dL (3.4-5.0); Calcium 9.5 mg/dL (8.5-10.1); Potassium 3.4 mmol/L (3.5-5.1)
[2021-12-25 21:04] LABS: BUN/Creatinine Ratio 15.1; Bilirubin, Total 0.4 mg/dL (0.2-1.0); Total Protein 7.3 g/dL (6.4-8.2)
[2021-12-26 02:01] VITALS: BP 133/70
== END 2021-12-26 02:21 | disposition home or self-care (01) ==
LOC: ER 19:46
DX: R07.89 Other chest pain (principal); R00.2 Palpitations; I13.0 Hypertensive heart and chronic kidney disease with heart failure and stage 1 through stage 4 chronic kidney disease, or unspecified chronic kidney disease; N18.9 Chronic kidney disease, unspecified; I50.9 Heart failure, unspecified; Z90.710 Acquired absence of both cervix and uterus
CPT/HCPCS: 36415; 71045; 80053; 84443; 84484; 85025; 93005

== ENCOUNTER → 2022-02-01 | Outpatient (CLI) | payer OTHER, MEDICAID ==
[2022-02-01 13:06] LABS: Basophils # (auto) 0 10 ^3/uL (0-0.2); Basophils % (auto) 0.8 % (0.0-2.0); Eosinophils # (auto) 0 10 ^3/uL (0-0.8); Eosinophils % (auto) 1.3 % (0.0-7.0); Hematocrit 40.4 % (36.0-46.0); Hemoglobin 13.4 g/dL (12.2-16.2); Lymphocytes % (auto) 34.9 % (10.0-50.0); Mean Corpuscular Hemoglobin 30.3 pg (28.0-32.0); Mean Corpuscular Hgb Conc. 33.2 g/dL (32.0-36.0); Mean Corpuscular Volume 91.2 fL (80.0-100.0); Monocytes # (auto) 0.2 10 ^3/uL (0-1.3); Monocytes % (auto) 7.6 % (0.0-12.0); Neutrophils # (auto) 1.7 10 ^3/uL (1.6-8.6); Neutrophils % (auto) 55.4 % (37.0-80.0); Nucleated Red Blood Cells % 0.2 %; Red Blood Cells 4.42 10^6/uL (4.0-5.20); Red Cell Distribution Width 14.5 % (11.8-14.3)
[2022-02-01 13:28] LABS: Free T4 (Free Thyroxine) 1.05 ng/dL (0.89-1.76)
[2022-02-01 13:52] LABS: Potassium 4.4 mmol/L (3.5-5.1)
[2022-02-01 14:04] LABS: Albumin 3.9 g/dL (3.4-5.0); BUN/Creatinine Ratio 15.4; Bilirubin, Total 0.6 mg/dL (0.2-1.0); Calcium 9.3 mg/dL (8.5-10.1); Total Protein 7.2 g/dL (6.4-8.2)
[2022-02-01 14:12] LABS: Thyroid Stimulating Hormone 1.69 uIU/mL (0.358-3.74)
== END | disposition home or self-care (01) ==
LOC: LAB 11:42
PROVIDERS: ATTEND Internal Medicine
DX: D64.9 Anemia, unspecified (principal)
CPT/HCPCS: 36415; 80053; 82607; 82746; 83615; 84439; 84443; 85025; 85652; 86038; 86225; 86256; 86703; 86704; 86706; 86708; 86803; 87340

== ENCOUNTER 2022-02-10 17:40 | Emergency (ER) | payer OTHER, MEDICAID ==
[~2022-02-10] VITALS: Ht 170.2 cm; Wt 80.0 kg
[2022-02-10] MEDS ORDERED: CYCLOBENZAPRINE HCL 10 MG TAB PO ONE (19:00)
[2022-02-10] MEDS ORDERED: KETOROLAC TROMETH 30 MG/ML 1ML VIAL IM ONE (19:00)
[2022-02-10 20:21] VITALS: BP 147/67
== END 2022-02-10 20:26 | disposition home or self-care (01) ==
LOC: ER 17:40
DX: M62.838 Other muscle spasm (principal); I13.0 Hypertensive heart and chronic kidney disease with heart failure and stage 1 through stage 4 chronic kidney disease, or unspecified chronic kidney disease; E11.22 Type 2 diabetes mellitus with diabetic chronic kidney disease; N18.9 Chronic kidney disease, unspecified; I50.9 Heart failure, unspecified; E78.5 Hyperlipidemia, unspecified; Z90.710 Acquired absence of both cervix and uterus
CPT/HCPCS: 96372; 99283; J1885

== ENCOUNTER → 2022-02-23 | Outpatient (CLI) | payer OTHER, MEDICAID ==
[2022-02-23 11:39] LABS: Albumin 3.7 g/dL (3.4-5.0); Calcium 9.2 mg/dL (8.5-10.1); Potassium 4.6 mmol/L (3.5-5.1)
[2022-02-23 11:42] LABS: BUN/Creatinine Ratio 19.5; Bilirubin, Total 0.6 mg/dL (0.2-1.0)
== END | disposition home or self-care (01) ==
LOC: LAB 10:38
PROVIDERS: ATTEND Nurse Practitioner Family
DX: R00.2 Palpitations (principal)
CPT/HCPCS: 36415; 80053

== ENCOUNTER 2022-05-30 12:20 | Emergency (ER) | payer OTHER, MEDICAID ==
[~2022-05-30] VITALS: Ht 152.4 cm; Wt 68.0 kg
[2022-05-30 13:54] LABS: Urine Bacteria NONE SEEN /hpf (None Seen); Urine Blood Negative /uL (Negative); Urine Hyaline Cast MOD /lpf (0 - 2); Urine Specific Gravity 1.013 (1.001-1.035); Urine WBC <1 /hpf (0 - 5)
[2022-05-30 14:50] LABS: Basophils # (auto) 0 10 ^3/uL (0-0.2); Basophils % (auto) 0.3 % (0.0-2.0); Eosinophils # (auto) 0 10 ^3/uL (0-0.8); Eosinophils % (auto) 1.2 % (0.0-7.0); Hematocrit 43.5 % (36.0-46.0); Hemoglobin 14.5 g/dL (12.2-16.2); Lymphocytes # (auto) 1.3 10 ^3/uL (0.4-5.4); Mean Corpuscular Hemoglobin 31.3 pg (28.0-32.0); Mean Corpuscular Hgb Conc. 33.3 g/dL (32.0-36.0); Mean Corpuscular Volume 93.9 fL (80.0-100.0); Monocytes # (auto) 0.3 10 ^3/uL (0-1.3); Monocytes % (auto) 6.6 % (0.0-12.0); Neutrophils # (auto) 2.4 10 ^3/uL (1.6-8.6); Neutrophils % (auto) 59.9 % (37.0-80.0); Nucleated Red Blood Cells % 0.6 %; Red Blood Cells 4.64 10^6/uL (4.0-5.20); Red Cell Distribution Width 14.5 % (11.8-14.3)
[2022-05-30 15:02] LABS: Albumin 4.2 g/dL (3.4-5.0); BUN/Creatinine Ratio 16.7; Calcium 9.8 mg/dL (8.5-10.1); Potassium 3.8 mmol/L (3.5-5.1)
[2022-05-30 15:05] LABS: Bilirubin, Total 0.5 mg/dL (0.2-1.0); Total Protein 7.9 g/dL (6.4-8.2)
[2022-05-31 04:24] VITALS: BP 139/89
== END 2022-05-31 04:24 | disposition home or self-care (01) ==
LOC: ER 12:20
DX: K57.90 Diverticulosis of intestine, part unspecified, without perforation or abscess without bleeding (principal); F41.9 Anxiety disorder, unspecified; I25.10 Atherosclerotic heart disease of native coronary artery without angina pectoris; E78.5 Hyperlipidemia, unspecified; I13.0 Hypertensive heart and chronic kidney disease with heart failure and stage 1 through stage 4 chronic kidney disease, or unspecified chronic kidney disease; E11.22 Type 2 diabetes mellitus with diabetic chronic kidney disease; N18.9 Chronic kidney disease, unspecified; Z90.710 Acquired absence of both cervix and uterus; Z79.899 Other long term (current) drug therapy; Z98.890 Other specified postprocedural states
CPT/HCPCS: 36415; 71250; 74176; 80053; 81001; 85025

== ENCOUNTER 2022-06-26 16:10 | Emergency (ER) | payer OTHER, MEDICAID ==
[~2022-06-26] VITALS: Ht 152.4 cm; Wt 78.8 kg
[2022-06-26 17:44] LABS: Basophils # (auto) 0.1 10 ^3/uL (0-0.2); Eosinophils # (auto) 0 10 ^3/uL (0-0.8); Eosinophils % (auto) 0.9 % (0.0-7.0); Hematocrit 40.4 % (36.0-46.0); Hemoglobin 13.4 g/dL (12.2-16.2); Lymphocytes # (auto) 1.6 10 ^3/uL (0.4-5.4); Lymphocytes % (auto) 27.2 % (10.0-50.0); Mean Corpuscular Hemoglobin 31.6 pg (28.0-32.0); Mean Corpuscular Hgb Conc. 33.3 g/dL (32.0-36.0); Monocytes # (auto) 0.4 10 ^3/uL (0-1.3); Monocytes % (auto) 7.6 % (0.0-12.0); Neutrophils # (auto) 3.6 10 ^3/uL (1.6-8.6); Neutrophils % (auto) 63.3 % (37.0-80.0); Nucleated Red Blood Cells % 0.2 %; Red Blood Cells 4.26 10^6/uL (4.0-5.20); Red Cell Distribution Width 14.6 % (11.8-14.3); White Blood Cell 5.7 10^3/uL (4.4-10.8)
[2022-06-26 18:13] LABS: Albumin 3.8 g/dL (3.4-5.0); BUN/Creatinine Ratio 23.6; Potassium 3.7 mmol/L (3.5-5.1)
[2022-06-26 18:25] LABS: Bilirubin, Total 0.5 mg/dL (0.2-1.0); Total Protein 7.3 g/dL (6.4-8.2)
[2022-06-27 03:44] VITALS: BP 139/74
== END 2022-06-27 03:44 | disposition home or self-care (01) ==
LOC: ER 16:10
DX: M54.2 Cervicalgia (principal); R51.9 Headache, unspecified; R20.2 Paresthesia of skin; M79.2 Neuralgia and neuritis, unspecified; F41.9 Anxiety disorder, unspecified; E11.9 Type 2 diabetes mellitus without complications; E78.5 Hyperlipidemia, unspecified; I10 Essential (primary) hypertension; Z79.899 Other long term (current) drug therapy; Z98.890 Other specified postprocedural states; Z90.710 Acquired absence of both cervix and uterus
CPT/HCPCS: 36415; 70450; 72125; 80053; 84484; 85025

== ENCOUNTER 2022-08-16 10:45 | Emergency (ER) | payer OTHER ==
[~2022-08-16] VITALS: Ht 152.4 cm; Wt 79.3 kg
[2022-08-16 11:36] LABS: Albumin 4.1 g/dL (3.4-5.0); Calcium 9.9 mg/dL (8.5-10.1); Potassium 3.4 mmol/L (3.5-5.1)
[2022-08-16 11:39] LABS: BUN/Creatinine Ratio 18.8 (10.0-20.0); Basophils # (auto) 0 10 ^3/uL (0-0.2); Basophils % (auto) 0.7 % (0.0-2.0); Bilirubin, Total 0.6 mg/dL (0.2-1.0); Eosinophils # (auto) 0.1 10 ^3/uL (0-0.8); Hematocrit 41.5 % (36.0-46.0); Hemoglobin 14.2 g/dL (12.2-16.2); Lymphocytes # (auto) 1.4 10 ^3/uL (0.4-5.4); Lymphocytes % (auto) 31.1 % (10.0-50.0); Mean Corpuscular Hemoglobin 31.8 pg (28.0-32.0); Mean Corpuscular Hgb Conc. 34.3 g/dL (32.0-36.0); Mean Corpuscular Volume 92.8 fL (80.0-100.0); Monocytes # (auto) 0.3 10 ^3/uL (0-1.3); Monocytes % (auto) 6.4 % (0.0-12.0); Neutrophils # (auto) 2.7 10 ^3/uL (1.6-8.6); Neutrophils % (auto) 59.8 % (37.0-80.0); Nucleated Red Blood Cells % 0.1 %; Red Blood Cells 4.47 10^6/uL (4.0-5.20); Red Cell Distribution Width 14.3 % (11.8-14.3); Total Protein 7.5 g/dL (6.4-8.2); White Blood Cell 4.4 10^3/uL (4.4-10.8)
[2022-08-16 11:49] LABS: Urine Bacteria NONE SEEN /hpf (None Seen); Urine Blood Negative /uL (Negative); Urine Specific Gravity 1.012 (1.001-1.035); Urine WBC <1 /hpf (0 - 5)
[2022-08-16] MEDS ORDERED: POTASSIUM EFFERVESENT TAB 25 MEQ PO ONE (12:00)
[2022-08-16 13:32] VITALS: BP 150/90
== END 2022-08-16 13:33 | disposition home or self-care (01) ==
LOC: ER 10:45
DX: R07.89 Other chest pain (principal); I10 Essential (primary) hypertension; F41.9 Anxiety disorder, unspecified; E11.9 Type 2 diabetes mellitus without complications; E78.5 Hyperlipidemia, unspecified; Z79.82 Long term (current) use of aspirin; Z79.899 Other long term (current) drug therapy; Z98.890 Other specified postprocedural states; Z90.710 Acquired absence of both cervix and uterus
CPT/HCPCS: 36415; 71045; 80053; 81001; 84484; 85025; 85379; 93005

== ENCOUNTER → 2022-10-07 | Outpatient (CLI) | payer OTHER ==
[2022-10-07 12:08] LABS: Basophils # (auto) 0 10 ^3/uL (0-0.2); Basophils % (auto) 0.6 % (0.0-2.0); Eosinophils # (auto) 0 10 ^3/uL (0-0.8); Hematocrit 38.7 % (36.0-46.0); Hemoglobin 13.3 g/dL (12.2-16.2); Lymphocytes # (auto) 1.4 10 ^3/uL (0.4-5.4); Mean Corpuscular Hemoglobin 32.3 pg (28.0-32.0); Mean Corpuscular Hgb Conc. 34.4 g/dL (32.0-36.0); Mean Corpuscular Volume 93.8 fL (80.0-100.0); Monocytes # (auto) 0.3 10 ^3/uL (0-1.3); Monocytes % (auto) 7.3 % (0.0-12.0); Neutrophils % (auto) 53.1 % (37.0-80.0); Nucleated Red Blood Cells % 0.3 %; Red Blood Cells 4.13 10^6/uL (4.0-5.20); White Blood Cell 3.7 10^3/uL (4.4-10.8)
[2022-10-07 12:46] LABS: Potassium 3.3 mmol/L (3.5-5.1)
[2022-10-07 12:56] LABS: Albumin 3.9 g/dL (3.4-5.0); BUN/Creatinine Ratio 18.5 (10.0-20.0); Bilirubin, Total 0.4 mg/dL (0.2-1.0); Calcium 9.3 mg/dL (8.5-10.1); Magnesium 2.4 mg/dL (1.6-2.6); Total Protein 7.5 g/dL (6.4-8.2)
== END | disposition home or self-care (01) ==
LOC: LAB 11:47
PROVIDERS: ATTEND Physician Assistant
DX: D64.9 Anemia, unspecified (principal)
CPT/HCPCS: 36415; 80053; 82306; 82728; 83540; 83615; 83735; 85025

== ENCOUNTER 2022-10-25 02:19 | Inpatient (IN) | payer OTHER, MEDICAID ==
[~2022-10-25] VITALS: Ht 152.4 cm; Wt 78.9 kg
[~2022-10-25 02:19] MED LIST changes: +ASPI-736 PO; -ASPI1CHW15 PO; -HYDR12.56 PO; +HYDR12.59 PO; -LEVO-28 PO; +LEVO500T91 PO
[2022-10-25 07:54] LABS: Basophils # (auto) 0 10 ^3/uL (0-0.2); Basophils % (auto) 0.4 % (0.0-2.0); Eosinophils # (auto) 0.1 10 ^3/uL (0-0.8); Eosinophils % (auto) 1.7 % (0.0-7.0); Hematocrit 39.4 % (36.0-46.0); Hemoglobin 13.3 g/dL (12.2-16.2); Lymphocytes # (auto) 1.3 10 ^3/uL (0.4-5.4); Lymphocytes % (auto) 24.8 % (10.0-50.0); Mean Corpuscular Hemoglobin 32.1 pg (28.0-32.0); Mean Corpuscular Hgb Conc. 33.8 g/dL (32.0-36.0); Monocytes # (auto) 0.4 10 ^3/uL (0-1.3); Monocytes % (auto) 7.6 % (0.0-12.0); Neutrophils # (auto) 3.5 10 ^3/uL (1.6-8.6); Neutrophils % (auto) 65.5 % (37.0-80.0); Nucleated Red Blood Cells % 0.1 %; Red Blood Cells 4.15 10^6/uL (4.0-5.20); Red Cell Distribution Width 13.8 % (11.8-14.3); White Blood Cell 5.3 10^3/uL (4.4-10.8)
[2022-10-25 08:07] LABS: Albumin 3.9 g/dL (3.4-5.0); Calcium 9.1 mg/dL (8.5-10.1); Magnesium 2.7 mg/dL (1.6-2.6); Potassium 3.6 mmol/L (3.5-5.1)
[2022-10-25 08:10] LABS: BUN/Creatinine Ratio 17.1 (10.0-20.0); Bilirubin, Total 0.5 mg/dL (0.2-1.0); Total Protein 7.3 g/dL (6.4-8.2)
[2022-10-25 08:19] LABS: INR 0.88 (0.9-1.15); Partial Thromboplastin Time 28.5 sec (24.6-33.4)
[2022-10-25] MEDS ORDERED: MORPHINE SULFATE INJ 2 MG/ml SYRG IV PRN (12:30)
[2022-10-25] MEDS ORDERED: NITROGLYCERIN 0.4 MG SL TAB SL PRN (12:30)
[2022-10-25] MEDS ORDERED: DEXTROSE (50%) 50ML SYRG IV PRN (13:45)
[2022-10-25] MEDS: InsuLIN REG 1unit/0.01ml Soln (100units/ml) SC SCH ×2 (17:00→22:00)
[2022-10-25] MEDS: ACCU-CHEK COMFORT CURVE STRIP VI SCH ×2 (17:00→22:00)
[2022-10-25] MEDS ORDERED: ATORVASTATIN 20 MG TAB PO SCH (22:00)
[2022-10-25] MEDS ORDERED: ACETAMINOPHEN 325 MG TAB PO PRN (23:15)
[2022-10-26 00:12] VITALS: BP 141/65
[2022-10-26 05:00] VITALS: BP 114/58
[2022-10-26] MEDS: ACCU-CHEK COMFORT CURVE STRIP VI SCH ×3 (06:33→17:00)
[2022-10-26] MEDS: InsuLIN REG 1unit/0.01ml Soln (100units/ml) SC SCH ×3 (06:33→17:00)
[2022-10-26 07:42] LABS: Basophils # (auto) 0 10 ^3/uL (0-0.2); Basophils % (auto) 0.5 % (0.0-2.0); Eosinophils # (auto) 0.1 10 ^3/uL (0-0.8); Eosinophils % (auto) 2.2 % (0.0-7.0); Hematocrit 37.8 % (36.0-46.0); Hemoglobin 12.5 g/dL (12.2-16.2); Lymphocytes # (auto) 1.7 10 ^3/uL (0.4-5.4); Lymphocytes % (auto) 34.9 % (10.0-50.0); Mean Corpuscular Hemoglobin 31.9 pg (28.0-32.0); Mean Corpuscular Volume 96.5 fL (80.0-100.0); Monocytes # (auto) 0.5 10 ^3/uL (0-1.3); Monocytes % (auto) 10.1 % (0.0-12.0); Neutrophils # (auto) 2.6 10 ^3/uL (1.6-8.6); Neutrophils % (auto) 52.3 % (37.0-80.0); Nucleated Red Blood Cells % 0.1 %; Red Blood Cells 3.92 10^6/uL (4.0-5.20); Red Cell Distribution Width 14.1 % (11.8-14.3); White Blood Cell 4.9 10^3/uL (4.4-10.8)
[2022-10-26 07:47] LABS: Potassium 4.1 mmol/L (3.5-5.1)
[2022-10-26 07:58] LABS: Albumin 3.2 g/dL (3.4-5.0); BUN/Creatinine Ratio 23.1 (10.0-20.0); Bilirubin, Total 0.4 mg/dL (0.2-1.0); Calcium 9.3 mg/dL (8.5-10.1); Total Protein 6.7 g/dL (6.4-8.2)
[2022-10-26 09:15] VITALS: BP_SYST 119; BP_SYST 136; BP_DIAS 65; BP_DIAS 81
[2022-10-26] MEDS ORDERED: HCTZ 25 MG TAB PO SCH (10:00)
[2022-10-26] MEDS ORDERED: CLOPIDOGREL BISULFATE 75 MG TAB PO SCH (10:00)
[2022-10-26] MEDS ORDERED: ASPirin 81 mg TAB PO SCH (10:00)
[2022-10-26] MEDS ORDERED: LOSARTAN POTASSIUM 25 MG TAB PO SCH (10:00)
[2022-10-26 13:00] VITALS: BP 144/78
[2022-10-26] MEDS ORDERED: MECL1TAB42 PO (17:02)
[2022-10-26] MEDS ORDERED: ERGO1CAP23 PO (17:02)
[2022-10-26 17:26] VITALS: BP 127/57
[2022-10-26 17:32] VITALS: BP 136/65
== END 2022-10-26 18:37 | disposition home or self-care (01) | DRG 69 ==
LOC: ER 02:19 → TELE 12:19 → TELE-WESTW 23:45
PROVIDERS: ADMIT Nurse Practitioner Family; ATTEND Internal Medicine
DX: G45.9 Transient cerebral ischemic attack, unspecified (principal); E11.9 Type 2 diabetes mellitus without complications; E66.01 Morbid (severe) obesity due to excess calories; E78.5 Hyperlipidemia, unspecified; G43.909 Migraine, unspecified, not intractable, without status migrainosus; F41.9 Anxiety disorder, unspecified; I10 Essential (primary) hypertension; Z90.710 Acquired absence of both cervix and uterus; Z68.34 Body mass index [BMI] 34.0-34.9, adult
CPT/HCPCS: 36415; 70450; 71045; 80053; 80061; 82306; 82962; 83036; 83735; 83880; 84443; 84484; 85025; 85610; 85730; 93005; G0378

== ENCOUNTER 2023-01-11 18:39 | Emergency (ER) | payer OTHER, MEDICAID ==
[~2023-01-11] VITALS: Ht 152.4 cm; Wt 75.5 kg
[~2023-01-11 18:39] MED LIST changes: -DOXY-286 PO; -LEVO500T91 PO; +MECL1TAB42 PO
[2023-01-11 18:42] VITALS: BP 136/66; RESP 16; O2SAT 98
[2023-01-11 19:45] LABS: Basophils # (auto) 0 10 ^3/uL (0-0.2); Basophils % (auto) 0.3 % (0.0-2.0); Eosinophils # (auto) 0.1 10 ^3/uL (0-0.8); Eosinophils % (auto) 2.1 % (0.0-7.0); Hematocrit 39.8 % (36.0-46.0); Hemoglobin 13.3 g/dL (12.2-16.2); Lymphocytes # (auto) 1.6 10 ^3/uL (0.4-5.4); Lymphocytes % (auto) 36.4 % (10.0-50.0); Mean Corpuscular Hemoglobin 31.3 pg (28.0-32.0); Mean Corpuscular Hgb Conc. 33.4 g/dL (32.0-36.0); Mean Corpuscular Volume 93.7 fL (80.0-100.0); Monocytes # (auto) 0.3 10 ^3/uL (0-1.3); Monocytes % (auto) 7.9 % (0.0-12.0); Neutrophils # (auto) 2.3 10 ^3/uL (1.6-8.6); Neutrophils % (auto) 53.3 % (37.0-80.0); Nucleated Red Blood Cells % 0.1 %; Red Blood Cells 4.25 10^6/uL (4.0-5.20); Red Cell Distribution Width 14.4 % (11.8-14.3); White Blood Cell 4.3 10^3/uL (4.4-10.8)
[2023-01-11 20:15] LABS: Alanine Aminotransferase 34 U/L (7-40); Albumin 4.4 g/dL (3.2-4.8); Alkaline Phosphatase 66 U/L (46-116); Anion Gap 7.3 (5-15); Aspartate Aminotransferase 13 U/L (13-40); BUN/Creatinine Ratio 16.5 (10.0-20.0); Bilirubin, Total 0.7 mg/dL (0.2-1.0); Blood Urea Nitrogen 15 mg/dL (9-23); Calcium 10.8 mg/dL (8.7-10.4); Carbon Dioxide 27.7 mmol/L (20-30); Chloride 101 mmol/L (98-107); Glucose 115 mg/dL (74-106); Magnesium 1.7 mg/dL (1.6-2.6); Potassium 3.4 mmol/L (3.5-5.1); Sodium 136 mmol/L (136-145)
[2023-01-11 21:46] VITALS: PULSE 50
[2023-01-11 22:22] LABS: Urine Bacteria FEW /hpf (None Seen); Urine Blood Negative /uL (Negative); Urine Clarity Clear (Clear); Urine Color Colorless (Yellow); Urine Protein, UAD Negative (Negative); Urine Specific Gravity 1.005 (1.001-1.035); Urine Urobilinogen Normal (Negative); Urine WBC <1 /hpf (0 - 5); Urine pH 6.5 (5.0-8.0)
== END 2023-01-11 19:39 | disposition home or self-care (01) ==
LOC: ER 18:39
DX: R07.89 Other chest pain (principal); I10 Essential (primary) hypertension; E11.9 Type 2 diabetes mellitus without complications; E78.5 Hyperlipidemia, unspecified; Z90.710 Acquired absence of both cervix and uterus; Z79.82 Long term (current) use of aspirin; Z79.899 Other long term (current) drug therapy
CPT/HCPCS: 36415; 71046; 80053; 81001; 83735; 84484; 85025; 93005

== ENCOUNTER → 2023-01-13 | Outpatient (CLI) | payer OTHER ==
[2023-01-13 10:45] LABS: Basophils # (auto) 0 10 ^3/uL (0-0.2); Basophils % (auto) 0.5 % (0.0-2.0); Eosinophils # (auto) 0.1 10 ^3/uL (0-0.8); Eosinophils % (auto) 3.6 % (0.0-7.0); Hematocrit 42.2 % (36.0-46.0); Lymphocytes # (auto) 1.5 10 ^3/uL (0.4-5.4); Lymphocytes % (auto) 41.9 % (10.0-50.0); Mean Corpuscular Hemoglobin 31.3 pg (28.0-32.0); Mean Corpuscular Hgb Conc. 33.1 g/dL (32.0-36.0); Mean Corpuscular Volume 94.4 fL (80.0-100.0); Monocytes # (auto) 0.4 10 ^3/uL (0-1.3); Monocytes % (auto) 10.2 % (0.0-12.0); Neutrophils # (auto) 1.5 10 ^3/uL (1.6-8.6); Neutrophils % (auto) 43.8 % (37.0-80.0); Nucleated Red Blood Cells % 0.1 %; Red Blood Cells 4.48 10^6/uL (4.0-5.20); Red Cell Distribution Width 14.4 % (11.8-14.3); White Blood Cell 3.5 10^3/uL (4.4-10.8)
[2023-01-13 11:29] LABS: Creatinine, Urine 118.29 mg/dL (30.0-125.0)
[2023-01-13 11:31] LABS: Micro Albumin < 3.0 mg/L (<30.0)
[2023-01-13 11:32] LABS: Alanine Aminotransferase 28 U/L (7-40); Albumin 4.6 g/dL (3.2-4.8); Alkaline Phosphatase 56 U/L (46-116); Anion Gap 7.9 (5-15); Aspartate Aminotransferase 14 U/L (13-40); BUN/Creatinine Ratio 12.9 (10.0-20.0); Blood Urea Nitrogen 11 mg/dL (9-23); Calcium 10.3 mg/dL (8.5-10.1); Carbon Dioxide 27.1 mmol/L (20-30); Chloride 103 mmol/L (98-107); Glucose 100 mg/dL (74-106); Magnesium 1.8 mg/dL (1.6-2.6); Potassium 3.2 mmol/L (3.5-5.1); Sodium 138 mmol/L (136-145)
[2023-01-13 11:33] LABS: Bilirubin, Total 0.6 mg/dL (0.2-1.0); Total Protein 7.6 g/dL (5.7-8.2)
[2023-01-13 11:34] LABS: Thyroid Stimulating Hormone 1.81 uIU/mL (0.55-4.78)
[2023-01-13 12:01] LABS: Free T4 (Free Thyroxine) 1.11 ng/dL (0.89-1.76)
== END | disposition home or self-care (01) ==
LOC: LAB 10:05
DX: E11.22 Type 2 diabetes mellitus with diabetic chronic kidney disease (principal); D64.9 Anemia, unspecified
CPT/HCPCS: 36415; 80053; 82043; 82306; 82570; 82728; 83036; 83540; 83615; 83735; 84439; 84443; 85025

== ENCOUNTER → 2023-01-25 | Outpatient (CLI) | payer OTHER ==
[2023-01-25 11:32] LABS: Basophils # (auto) 0 10 ^3/uL (0-0.2); Basophils % (auto) 0.4 % (0.0-2.0); Eosinophils # (auto) 0.1 10 ^3/uL (0-0.8); Eosinophils % (auto) 2.4 % (0.0-7.0); Hematocrit 40.8 % (36.0-46.0); Hemoglobin 13.6 g/dL (12.2-16.2); Lymphocytes # (auto) 1.4 10 ^3/uL (0.4-5.4); Mean Corpuscular Hemoglobin 31.3 pg (28.0-32.0); Mean Corpuscular Hgb Conc. 33.4 g/dL (32.0-36.0); Mean Corpuscular Volume 93.8 fL (80.0-100.0); Monocytes # (auto) 0.3 10 ^3/uL (0-1.3); Monocytes % (auto) 8.9 % (0.0-12.0); Neutrophils # (auto) 1.7 10 ^3/uL (1.6-8.6); Neutrophils % (auto) 48.3 % (37.0-80.0); Red Blood Cells 4.35 10^6/uL (4.0-5.20); Red Cell Distribution Width 15.1 % (11.8-14.3); White Blood Cell 3.5 10^3/uL (4.4-10.8)
[2023-01-25 12:14] LABS: Alanine Aminotransferase 21 U/L (7-40); Albumin 4.6 g/dL (3.2-4.8); Aspartate Aminotransferase 11 U/L (13-40); Calcium 10.1 mg/dL (8.5-10.1); Carbon Dioxide 26.9 mmol/L (20-30); Chloride 107 mmol/L (98-107); Triglycerides 80 mg/dL (< 150)
[2023-01-25 12:15] LABS: Anion Gap 6.1 (5-15); BUN/Creatinine Ratio 10.1 (10.0-20.0); Bilirubin, Total 0.6 mg/dL (0.2-1.0); Blood Urea Nitrogen 8 mg/dL (9-23); Cholesterol 152 mg/dL (< 200); Glucose 105 mg/dL (74-106); HDL Cholesterol 66 mg/dL (40-59); LDL Cholesterol 70 mg/dL (< 100); Potassium 4.1 mmol/L (3.5-5.1); Sodium 140 mmol/L (136-145); Total Protein 7.5 g/dL (5.7-8.2)
[2023-01-25 12:22] LABS: Alkaline Phosphatase 54 U/L (46-116)
[2023-01-25 12:37] LABS: Creatinine, Urine 191.93 mg/dL (30.0-125.0)
== END | disposition home or self-care (01) ==
LOC: LAB 11:00
PROVIDERS: ATTEND Nurse Practitioner Family
DX: E11.22 Type 2 diabetes mellitus with diabetic chronic kidney disease (principal); I13.0 Hypertensive heart and chronic kidney disease with heart failure and stage 1 through stage 4 chronic kidney disease, or unspecified chronic kidney disease; I50.9 Heart failure, unspecified; N18.9 Chronic kidney disease, unspecified
CPT/HCPCS: 36415; 80053; 80061; 82043; 82570; 83036; 84439; 84443; 85025

== ENCOUNTER 2023-02-05 19:52 | Inpatient (IN) | payer OTHER, MEDICAID ==
[~2023-02-05] VITALS: Ht 152.4 cm; Wt 83.7 kg
[2023-02-05 20:16] LABS: Basophils # (auto) 0 10 ^3/uL (0-0.2); Basophils % (auto) 0.4 % (0.0-2.0); Eosinophils # (auto) 0.2 10 ^3/uL (0-0.8); Hemoglobin 13.9 g/dL (12.2-16.2); Lymphocytes # (auto) 2.3 10 ^3/uL (0.4-5.4); Lymphocytes % (auto) 40.4 % (10.0-50.0); Mean Corpuscular Hemoglobin 31.6 pg (28.0-32.0); Mean Corpuscular Hgb Conc. 33.8 g/dL (32.0-36.0); Mean Corpuscular Volume 93.3 fL (80.0-100.0); Monocytes # (auto) 0.6 10 ^3/uL (0-1.3); Monocytes % (auto) 9.8 % (0.0-12.0); Neutrophils # (auto) 2.6 10 ^3/uL (1.6-8.6); Neutrophils % (auto) 46.4 % (37.0-80.0); Nucleated Red Blood Cells % 0.1 %; Red Blood Cells 4.39 10^6/uL (4.0-5.20); Red Cell Distribution Width 14.7 % (11.8-14.3); White Blood Cell 5.7 10^3/uL (4.4-10.8)
[2023-02-05 20:36] LABS: Alanine Aminotransferase 20 U/L (7-40); Albumin 4.4 g/dL (3.2-4.8); Alkaline Phosphatase 66 U/L (46-116); Anion Gap 6 (5-15); Aspartate Aminotransferase 10 U/L (13-40); BUN/Creatinine Ratio 15.9 (10.0-20.0); Bilirubin, Total 0.4 mg/dL (0.2-1.0); Blood Urea Nitrogen 13 mg/dL (9-23); Calcium 10.1 mg/dL (8.7-10.4); Carbon Dioxide 31 mmol/L (20-30); Chloride 101 mmol/L (98-107); Glucose 104 mg/dL (74-106); Magnesium 1.8 mg/dL (1.6-2.6); Potassium 3.8 mmol/L (3.5-5.1); Sodium 138 mmol/L (136-145); Total Protein 7.1 g/dL (5.7-8.2)
[2023-02-05 20:50] LABS: INR 0.93 (0.9-1.15); Partial Thromboplastin Time 26.8 SEC (24.5-34.5); Prothrombin Time 9.8 sec (9.3-11.8)
[2023-02-05] MEDS ORDERED: MORPHINE SULFATE 4 MG/ML SYR/VIAL IV ONE (23:45)
[2023-02-05] MEDS ORDERED: PANTOPRAZOLE 40 MG/10 ML VIAL INJ IV ONE (23:45)
[2023-02-05] MEDS ORDERED: ENOXAPARIN SOD 100 MG/1 ML SYRINGE SC ONE (23:45)
[2023-02-05] MEDS ORDERED: NITROGLYCERIN 0.2MG/HR TOPICAL PATCH TD ONE (23:45)
[2023-02-05] MEDS ORDERED: SODIUM CHLORIDE 0.9% 1,000 ML IV ONE (23:45)
[2023-02-05] MEDS ORDERED: ONDANSETRON HCL 4 MG/2 ML VIAL IV ONE (23:45)
[2023-02-05] MEDS ORDERED: ASPirin 81 mg TAB PO ONE (23:45)
[2023-02-05] MEDS ORDERED: ACETAMINOPHEN 325 MG TAB PO ONE (23:45)
[2023-02-06] MEDS ORDERED: MORPHINE SULFATE INJ 2 MG/ml SYRG IV PRN (00:30)
[2023-02-06] MEDS ORDERED: NITROGLYCERIN 0.4 MG SL TAB SL PRN (00:30)
[2023-02-06] MEDS ORDERED: DEXTROSE (50%) 50ML SYRG IV PRN (00:30)
[2023-02-06] MEDS ORDERED: ONDANSETRON HCL 4 MG/2 ML VIAL IV PRN (00:30)
[2023-02-06 01:56] VITALS: PULSE 49; RESP 19; O2SAT 95
[2023-02-06] MEDS: ACCU-CHEK COMFORT CURVE STRIP VI SCH ×4 (06:33→21:26)
[2023-02-06] MEDS: InsuLIN REG 1unit/0.01ml Soln (100units/ml) SC SCH ×4 (06:33→21:31)
[2023-02-06 07:27] VITALS: PULSE 54; RESP 16; O2SAT 97
[2023-02-06 09:45] LABS: Cholesterol 131 mg/dL (< 200); Triglycerides 99 mg/dL (< 150)
[2023-02-06 09:46] LABS: LDL Cholesterol 60 mg/dL (< 100)
[2023-02-06 09:47] LABS: HDL Cholesterol 55 mg/dL (40-59)
[2023-02-06] MEDS: ENOXAPARIN SOD 40 MG/0.4 ML SYRINGE SC SCH (10:00)
[2023-02-06] MEDS: LOSARTAN POTASSIUM 25 MG TAB PO SCH (10:00)
[2023-02-06] MEDS ORDERED: ASPirin 81 mg TAB PO SCH (10:00)
[2023-02-06] MEDS: ASPirin 81 mg TAB PO SCH (10:05)
[2023-02-06 17:00] VITALS: BP 111/59; PULSE 53; RESP 16; TEMP 98.4; O2SAT 95
[2023-02-06 20:00] VITALS: PULSE 45; PULSE 49; RESP 18; O2SAT 95
[2023-02-06 22:00] VITALS: BP 106/53; PULSE 48; RESP 17; TEMP 97.6; O2SAT 97
[2023-02-06] MEDS ORDERED: ATORVASTATIN 20 MG TAB PO SCH (22:00)
[2023-02-07] VITALS (7 sets, daily range): BP systolic 112–142; BP diastolic 50–78; PULSE 45–84; RESP 16–18; TEMP 98–98.7; O2SAT 95–100
[2023-02-07] MEDS: InsuLIN REG 1unit/0.01ml Soln (100units/ml) SC SCH ×4 (06:24→21:15)
[2023-02-07] MEDS: ACCU-CHEK COMFORT CURVE STRIP VI SCH ×4 (06:24→21:16)
[2023-02-07] MEDS ORDERED: ADENOSINE 70 MG in GIVE UN-DILUTED 0 ML IV STA (07:38)
[2023-02-07 09:03] LABS: Chloride 108 mmol/L (98-107); Potassium 4.5 mmol/L (3.5-5.1); Sodium 142 mmol/L (136-145)
[2023-02-07 09:04] LABS: Anion Gap 4 (5-15); Carbon Dioxide 30 mmol/L (20-30)
[2023-02-07 09:05] LABS: Calcium 9.5 mg/dL (8.5-10.1)
[2023-02-07 09:09] LABS: Glucose 111 mg/dL (74-106)
[2023-02-07 09:10] LABS: BUN/Creatinine Ratio 17.6 (10.0-20.0); Blood Urea Nitrogen 12 mg/dL (9-23)
[2023-02-07 09:16] LABS: Basophils # (auto) 0 10 ^3/uL (0-0.2); Basophils % (auto) 0.6 % (0.0-2.0); Eosinophils # (auto) 0.2 10 ^3/uL (0-0.8); Eosinophils % (auto) 3.7 % (0.0-7.0); Hemoglobin 12.6 g/dL (12.2-16.2); Lymphocytes # (auto) 1.7 10 ^3/uL (0.4-5.4); Lymphocytes % (auto) 39.1 % (10.0-50.0); Mean Corpuscular Hemoglobin 31.3 pg (28.0-32.0); Mean Corpuscular Hgb Conc. 33.2 g/dL (32.0-36.0); Mean Corpuscular Volume 94.4 fL (80.0-100.0); Monocytes # (auto) 0.4 10 ^3/uL (0-1.3); Monocytes % (auto) 9.1 % (0.0-12.0); Neutrophils # (auto) 2.1 10 ^3/uL (1.6-8.6); Neutrophils % (auto) 47.5 % (37.0-80.0); Nucleated Red Blood Cells % 0.1 %; Red Blood Cells 4.03 10^6/uL (4.0-5.20); Red Cell Distribution Width 14.5 % (11.8-14.3); White Blood Cell 4.3 10^3/uL (4.4-10.8)
[2023-02-07] MEDS: ENOXAPARIN SOD 40 MG/0.4 ML SYRINGE SC SCH (10:00)
[2023-02-07] MEDS: LOSARTAN POTASSIUM 25 MG TAB PO SCH (10:42)
[2023-02-07] MEDS: ASPirin 81 mg TAB PO SCH (10:42)
[2023-02-07] MEDS ORDERED: ASPirin 81 mg TAB PO ONE (14:00)
[2023-02-07] MEDS ORDERED: CLOPIDOGREL 300 MG TAB PO ONE (14:30)
[2023-02-07] MEDS ORDERED: HYDR12.59 PO (15:58)
[2023-02-07] MEDS ORDERED: LOSA25TA15 PO (15:58)
[2023-02-07] MEDS ORDERED: METF-370 PO (15:58)
[2023-02-07] MEDS ORDERED: ASPI-543 PO (15:58)
[2023-02-07] MEDS ORDERED: ATOR20TA50 PO (15:58)
[2023-02-07] MEDS: ACETAMINOPHEN 325 MG TAB PO PRN (21:12)
[2023-02-08] VITALS (10 sets, daily range): BP systolic 99–142; BP diastolic 45–76; PULSE 46–63; RESP 12–20; TEMP 97.6–98.4; O2SAT 90–100
[2023-02-08] MEDS: InsuLIN REG 1unit/0.01ml Soln (100units/ml) SC SCH ×4 (06:00→21:05)
[2023-02-08] MEDS: ACCU-CHEK COMFORT CURVE STRIP VI SCH ×4 (06:00→21:06)
[2023-02-08] MEDS: ENOXAPARIN SOD 40 MG/0.4 ML SYRINGE SC SCH (08:53)
[2023-02-08] MEDS: ASPirin 81 mg TAB PO SCH (08:54)
[2023-02-08] MEDS: LOSARTAN POTASSIUM 25 MG TAB PO SCH (08:54)
[2023-02-08] MEDS ORDERED: CLOPIDOGREL BISULFATE 75 MG TAB PO SCH (10:00)
[2023-02-08] MEDS ORDERED: ANGIOMAX 250 MG VIAL IV ONE (11:54)
[2023-02-08] MEDS ORDERED: HEPARIN SODIUM (PORCINE) 5000 UNITS/ML 1ML VIAL ONE (11:54)
[2023-02-08] MEDS ORDERED: SODIUM CHL 0.9% 0 ML ONE (11:55)
[2023-02-08] MEDS ORDERED: IODIXANOL 320MG/ML 100ML BTL IV ONE (11:55)
[2023-02-08] MEDS ORDERED: fentaNYL CITRATE 100 MCG/2 ML VL ONE (11:55)
[2023-02-08] MEDS ORDERED: MIDAZOLAM HCL 2MG/2ML 2ml VIAL (1mg/ml) ONE (11:55)
[2023-02-08] MEDS ORDERED: VERAPAMIL 2.5MG/ML INJ 2ML VIAL IV ONE (11:55)
[2023-02-08] MEDS ORDERED: LIDOCAINE 2%HCL (LOCAL ANESTH.) INJ 20ML MDV ONE (11:55)
[2023-02-08] MEDS: ACETAMINOPHEN 325 MG TAB PO PRN (14:12)
[2023-02-09 05:00] VITALS: BP 128/58; PULSE 48; RESP 20; TEMP 98.2; O2SAT 100
[2023-02-09] MEDS: InsuLIN REG 1unit/0.01ml Soln (100units/ml) SC SCH ×2 (07:00→12:40)
[2023-02-09] MEDS: ACCU-CHEK COMFORT CURVE STRIP VI SCH ×2 (07:24→12:37)
[2023-02-09 08:30] VITALS: PULSE 47; PULSE 56; RESP 18
[2023-02-09 08:49] VITALS: BP 130/56; PULSE 53; RESP 17; TEMP 98.2; O2SAT 99
[2023-02-09] MEDS: ENOXAPARIN SOD 40 MG/0.4 ML SYRINGE SC SCH (10:32)
[2023-02-09] MEDS: LOSARTAN POTASSIUM 25 MG TAB PO SCH (10:33)
[2023-02-09 13:00] VITALS: BP 131/60; PULSE 50; RESP 17; TEMP 97.8; O2SAT 100
[2023-02-09 16:32] VITALS: BP 116/60; PULSE 78; RESP 17; TEMP 98; O2SAT 97
== END 2023-02-09 17:00 | disposition home or self-care (01) | DRG 287 ==
LOC: ER 19:52 → TELE 02-06 00:32 → TELE-WESTW 02-06 16:14
PROVIDERS: ADMIT Nurse Practitioner; ATTEND Nurse Practitioner Acute Care
PROC: 4A023N7 Measurement of Cardiac Sampling and Pressure, Left Heart, Percutaneous Approach (ICD-10-PCS; principal; 2023-02-08)
PROC: B211YZZ Fluoroscopy of Multiple Coronary Arteries using Other Contrast (ICD-10-PCS; 2023-02-08)
PROC: B215YZZ Fluoroscopy of Left Heart using Other Contrast (ICD-10-PCS; 2023-02-08)
DX: I24.9 Acute ischemic heart disease, unspecified (principal); E11.22 Type 2 diabetes mellitus with diabetic chronic kidney disease; E66.9 Obesity, unspecified; E78.5 Hyperlipidemia, unspecified; R00.1 Bradycardia, unspecified; I12.9 Hypertensive chronic kidney disease with stage 1 through stage 4 chronic kidney disease, or unspecified chronic kidney disease; N18.9 Chronic kidney disease, unspecified; I25.110 Atherosclerotic heart disease of native coronary artery with unstable angina pectoris; K59.00 Constipation, unspecified; Z68.36 Body mass index [BMI] 36.0-36.9, adult; Z82.49 Family history of ischemic heart disease and other diseases of the circulatory system
CPT/HCPCS: 36415; 71045; 71250; 78452; 80048; 80053; 80061; 82962; 83735; 83880; 84443; 84484; 85025; 85610; 85730; 93005; 93017; 93306; 93458; 96361; 96372; 96374; 96375; 97110; 97116; 97163; 97530; 99152; 99153; C9113; G0378; J0153; J1815; J2250; J2405; Q9967

== ENCOUNTER → 2024-02-22 | Outpatient (CLI) | payer MEDICAID, OTHER ==
[~2024-02-22] MED LIST changes: +ASPI-543 PO; -ASPI-736 PO; -ERGO1CAP23 PO; -LOS25T PO; +LOSA-533 PO; -MECL1TAB42 PO; +METF-370 PO; -METF-869 PO; +SIMV20TA20 PO
[2024-02-22 06:36] LABS: Basophils # (auto) 0 10 ^3/uL (0-0.2); Basophils % (auto) 0.6 % (0.0-2.0); Eosinophils # (auto) 0.1 10 ^3/uL (0-0.8); Eosinophils % (auto) 2.1 % (0.0-7.0); Hematocrit 39.5 % (36.0-46.0); Hemoglobin 13.4 g/dL (12.2-16.2); Lymphocytes # (auto) 1.6 10 ^3/uL (0.4-5.4); Lymphocytes % (auto) 33.3 % (10.0-50.0); Mean Corpuscular Hemoglobin 32.4 pg (28.0-32.0); Mean Corpuscular Volume 95.2 fL (80.0-100.0); Monocytes # (auto) 0.4 10 ^3/uL (0-1.3); Monocytes % (auto) 9.4 % (0.0-12.0); Neutrophils # (auto) 2.6 10 ^3/uL (1.6-8.6); Neutrophils % (auto) 54.6 % (37.0-80.0); Platelet Count (auto) 231 10^3/uL (140-450); Red Blood Cells 4.14 10^6/uL (4.0-5.20); Red Cell Distribution Width 13.5 % (11.8-14.3); White Blood Cell 4.7 10^3/uL (4.4-10.8)
[2024-02-22 07:34] LABS: Creatinine, Urine 148.8 mg/dL (30.0-125.0)
[2024-02-22 07:40] LABS: Alanine Aminotransferase 30 U/L (7-40); Albumin 4.2 g/dL (3.2-4.8); Alkaline Phosphatase 70 U/L (46-116); Anion Gap 8 (5-15); Aspartate Aminotransferase 18 U/L (13-40); BUN/Creatinine Ratio 17.9 (10.0-20.0); Bilirubin, Total 0.5 mg/dL (0.2-1.0); Blood Urea Nitrogen 14 mg/dL (9-23); Calcium 10.1 mg/dL (8.7-10.4); Carbon Dioxide 27 mmol/L (20-31); Chloride 106 mmol/L (98-107); Cholesterol 154 mg/dL (< 200); Glucose 112 mg/dL (74-106); HDL Cholesterol 53 mg/dL (40-59); LDL Cholesterol 88 mg/dL (< 100); Potassium 3.3 mmol/L (3.5-5.1); Sodium 141 mmol/L (136-145); Total Protein 6.9 g/dL (5.7-8.2); Triglycerides 109 mg/dL (< 150)
== END | disposition home or self-care (01) ==
LOC: LAB 06:10
PROVIDERS: ATTEND Nurse Practitioner Family
DX: I12.9 Hypertensive chronic kidney disease with stage 1 through stage 4 chronic kidney disease, or unspecified chronic kidney disease (principal); N18.2 Chronic kidney disease, stage 2 (mild); E11.22 Type 2 diabetes mellitus with diabetic chronic kidney disease; I25.9 Chronic ischemic heart disease, unspecified
CPT/HCPCS: 36415; 80053; 80061; 82043; 82570; 83036; 84439; 84443; 85025

== ENCOUNTER 2024-06-07 15:34 | Emergency (ER) | payer MEDICAID ==
[~2024-06-07] VITALS: Ht 154.9 cm; Wt 80.0 kg
--- NOTE | 2024-06-07 15:47 | ECG ---
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
--- NOTE | 2024-06-07 16:06 | DVH ---
EXAM: XR Chest, 1 View CLINICAL INDICATION: CP TECHNIQUE: Frontal view of the chest. COMPARISON: XY CHEST PORTABLE on DOS: 02/05/23, XY CHEST XRAY 1 VIEW on DOS: 10/25/22, XY CHEST RHYS BLE on DOS: 08/16/22, CXRP on DOS: 12/25/21, CHEST PORTABLE on DOS: 12/25/21 FINDINGS: LUNGS AND PLEURAL SPACES: Pulmonary venous congestion. No consolidation. No pneumothorax. HEART: Unremarkable. No cardiomegaly. MEDIASTINUM: Unremarkable. Normal mediastinal contour. BONES/JOINTS: Unremarkable. No acute fracture. OTHER FINDINGS: . . IMPRESSION: Pulmonary venous congestion. HS:Y
[2024-06-07 16:07] LABS: Basophils # (auto) 0 10 ^3/uL (0-0.2); Basophils % (auto) 0.3 % (0.0-2.0); Eosinophils # (auto) 0 10 ^3/uL (0-0.8); Hematocrit 44.6 % (36.0-46.0); Lymphocytes # (auto) 1.5 10 ^3/uL (0.4-5.4); Lymphocytes % (auto) 36.1 % (10.0-50.0); Mean Corpuscular Hgb Conc. 33.7 g/dL (32.0-36.0); Monocytes # (auto) 0.4 10 ^3/uL (0-1.3); Monocytes % (auto) 9.7 % (0.0-12.0); Neutrophils # (auto) 2.1 10 ^3/uL (1.6-8.6); Neutrophils % (auto) 52.9 % (37.0-80.0); Nucleated Red Blood Cells % 0.1 %; Platelet Count (auto) 226 10^3/uL (140-450); Red Blood Cells 4.55 10^6/uL (4.0-5.20); Red Cell Distribution Width 14.9 % (11.8-14.3)
[2024-06-07 16:18] LABS: Alkaline Phosphatase 81 U/L (46-116); Chloride 104 mmol/L (98-107)
[2024-06-07 16:19] LABS: Anion Gap 7 (5-15); BUN/Creatinine Ratio 15.6 (10.0-20.0); Bilirubin, Total 0.6 mg/dL (0.2-1.0); Blood Urea Nitrogen 14 mg/dL (9-23); Carbon Dioxide 28 mmol/L (20-31); Potassium 3.8 mmol/L (3.5-5.1); Sodium 139 mmol/L (136-145); Total Protein 7.4 g/dL (5.7-8.2)
[2024-06-07 16:30] LABS: Alanine Aminotransferase 77 U/L (7-40); Albumin 4.8 g/dL (3.2-4.8); Aspartate Aminotransferase 53 U/L (13-40); Glucose 121 mg/dL (74-106)
--- NOTE | 2024-06-07 16:44 | ECG ---
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
--- NOTE | 2024-06-07 18:01 | ED.PDOC ---
HPI Comments 63Y F with PMHx DM, HTN, and HLD presents to ED for chief complaint chest pain x4days with productive cough. Pt states chest pain is substernal and non- radiating. Pt denies fever, SOB, and n/v/d. No other symptoms reported. Chief Complaint: Chest Pain Time Seen by MD: 16:10 Primary Care Provider: Emma Fierro Reviewed Notes: Nurses Notes, Medications, Allergies Allergies: Coded Allergies: NO KNOWN ALLERGIES (Unverified , 09/29/21) Home Meds Reported Medications Metformin Hydrochloride (Metformin Hcl) 500 Mg Tab, 500 MG PO DAILY, % 02/07/23 Losartan Potassium (Losartan Potassium) 25 Mg Tab, 25 MG PO DAILY for 30 Days, MG 02/07/23 Hydrochlorothiazide (Hydrochlorothiazide) 12.5 Mg Cap, 1 CAP PO DAILY, CAP 02/07/23 Atorvastatin Calcium (ATORVASTATIN CALCIUM) 20 Mg Tab, 1 TAB PO DAILY, % 02/07/23 Aspirin (Aspir-Low) 81 Mg Tab, 81 MG PO DAILY, MG 02/07/23 Metformin Hydrochloride (Metformin Hcl) 500 Mg Tab, 0.5 TAB PO HS for 30 Days, MG 10/16/19 Losartan Potassium (Losartan Potassium) 25 Mg Tab, 25 MG PO HS for 30 Days, MG 10/16/19 Hydrochlorothiazide (Hydrochlorothiazide) 12.5 Mg Cap, 12.5 MG PO HS for 30 Days, MG 10/16/19 Simvastatin (Simvastatin) 20 Mg Tab, 20 MG PO HS for 30 Days 10/16/19 Information Source: Patient Mode of Arrival: Ambulatory Severity: Mild Timing: Days Duration: Since onset Location: Substernal Radiation: No Radiation Quality: Other Onset: At Rest Cardiac Risk Factors: Hyperlipidemia, HTN, Diabetes History of: None Modifying Factors: Nothing Associated Signs and Symptoms: Other Past Medical History PAST MEDICAL HISTORY: Angina, Anxiety, DM, High Lipids, HTN Surgical History: BTL, , Hysterectomy 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 Family History Family History: Reviewed,noncontributory to illness, Family hx of DM, Family hx of HTN Social History Smoker: Non-Smoker Alcohol: Rarely Drugs: Denies Drug Use Lives In: Home Constitutional: denies: chills, diaphoresis, fatigue, fever, malaise, sweats, weakness, others EENTM: denies: blurred vision, double vision, ear bleeding, ear discharge, ear drainage, ear pain, ear ringing, eye pain, eye redness, hearing loss, mouth pain, mouth swelling, nasal discharge, nose bleeding, nose congestion, nose pain, photophobia, tearing, throat pain, throat swelling, voice changes, others Respiratory: reports: cough; denies: hemoptysis, orthopnea, SOB at rest, shortness of breath, SOB with excertion, stridor, wheezing, others Cardiovascular: reports: chest pain; denies: dizzy spells, diaphoresis, Dyspnea on exertion, edema, irregular heart beat, left arm pain, lightheadedness, palpitations, PND, syncope, others Gastrointestinal: denies: abdomen distended, abdominal pain, blood streaked bowels, constipated, diarrhea, dysphagia, difficulty swallowing, hematemesis, melena, nausea, poor appetite, poor fluid intake, rectal bleeding, rectal pain, vomiting, others Genitourinary: denies: abnormal vagina bleeding, burning, dyspareunia, dysuria, flank pain, frequency, hematuria, incontinence, pain, , vagina discharge, urgency, others Neurological: denies: dizziness, fainting, headache, left sided numbness, left sided weakness, numbness, paresthesia, pre-existing deficit, right sided numbness, right sided weakness, seizure, speech problems, tingling, tremors, weakness, others Musculoskeletal: denies: back pain, gout, joint pain, joint swelling, muscle pain, muscle stiffness, neck pain, others Integumetry: denies: bruises, change in color, change in hair/nails, dryness, laceration, lesions, lumps, rash, wounds, others Allergic/Immunocompromised: denies: Difficulty Healing, Frequent Infections, Hives, Itching, others Hematologic/Lymphatic: denies: anemia, blood clots, easy bleeding, easy bruising, swollen glands, others Endocrine: denies: excessive hunger, excessive sweating, excessive thirst, excessive urination, flushing, intolerance to cold, intolerance to heat, unexplained weight gain, unexplained weight loss, others Psychiatric: denies: anxiety, bipolar disorder, depression, hopeless, panic disorder, schizophrenia, sleepless, suicidal, others All Other Systems: Reviewed and Negative Physical Exam General Appearance: No Apparent Distress, Normal HEENT: Normal ENT Inspection, Pharynx Normal, TMs Normal Neck: Full Range of Motion, Non-Tender, Normal, Normal Inspection Respiratory: Chest Non-Tender, Lungs Clear, No Accessory Muscle Use, No Respira tory Distress, Normal Breath Sounds Cardiovascular: No Edema, No JVD, No Murmur, No Gallop, Normal Peripheral Pulses, Regular Rate/Rhythm Breast Exam: Deferred Gastrointestinal: No Organomegaly, Non Tender, No Pulsatile Mass, Normal Bowel Sounds, Soft Genitalia: Deferred Pelvic: Deferred Rectal: Deferred Extremities: No calf tenderness, Normal capillary refill, Normal inspection, Normal range of motion, Non-tender, No pedal edema Musculoskeletal : Apperance: Normal Neurologic: Alert, aerospace mechanic II-XII nml as Tested, No Motor Deficits, Normal Affect, Normal Mood, No Sensory Deficits Cerebellar Function: Normal Reflexes: Normal Skin: Dry, Normal Color, Warm Lymphatic: No Adenopathy Was a procedure done? Was a procedure done?: No CP Differential Dx Differential Diagnosis: Anxiety / Panic Attack Differential Diagnosis: CHF, HTN Essential, HTN Accelerated Differential Diagnosis: Angina, Aortic dissection X-Ray, Labs, Meds, VS Vital Signs Date Time Temp Pulse Resp B/P (MAP) Pulse Ox O2 Delivery O2 Flow Rate FiO2 06/07/24 18:35 68 18 97 Room Air* 0 21 06/07/24 18:35 98.6 85 16 152/88 (109) 98 98.6 06/07/24 16:43 73 06/07/24 15:42 89 06/07/24 15:35 99.1 96 20 157/82 (107) 99 Lab Test 06/07/24 16:48 06/07/24 15:48 06/07/24 15:47 Range/Units Troponin I High Sensitivity 3 L 3 L </=34 ng/L POC Glucose 132 H 70-106 mg/dl White Blood Count 4.0 L 4.4-10.8 10^3/uL Red Blood Count 4.55 4.0-5.20 10^6/uL Hemoglobin 15.0 12.2-16.2 g/dL Hematocrit 44.6 36.0-46.0 % Mean Corpuscular Volume 98.0 80.0-100.0 fL Mean Corpuscular Hemoglobin 33.0 H 28.0-32.0 pg Mean Corpuscular Hemoglobin Concent 33.7 32.0-36.0 g/dL Red Cell Distribution Width 14.9 H 11.8-14.3 % Platelet Count 226 140-450 10^3/uL Mean Platelet Volume 8.2 6.9-10.8 fL Neutrophils (%) (Auto) 52.9 37.0-80.0 % Lymphocytes (%) (Auto) 36.1 10.0-50.0 % Monocytes (%) (Auto) 9.7 0.0-12.0 % Eosinophils (%) (Auto) 1.0 0.0-7.0 % Basophils (%) (Auto) 0.3 0.0-2.0 % Neutrophils # (Auto) 2.1 1.6-8.6 10 ^3/uL Lymphocytes # (Auto) 1.5 0.4-5.4 10 ^3/uL Monocytes # (Auto) 0.4 0-1.3 10 ^3/uL Eosinophils # (Auto) 0 0-0.8 10 ^3/uL Basophils # (Auto) 0 0-0.2 10 ^3/uL Nucleated Red Blood Cells 0.1 % Sodium Level 139 136-145 mmol/L Potassium Level 3.8 3.5-5.1 mmol/L Chloride Level 104 98-107 mmol/L Carbon Dioxide Level 28 20-31 mmol/L Anion Gap 7 5-15 Blood Urea Nitrogen 14 9-23 mg/dL Creatinine 0.90 0.550-1.02 mg/dL Glomerular Filtration Rate Calc 71 >90 mL/min BUN/Creatinine Ratio 15.6 10.0-20.0 Serum Glucose 121 H 74-106 mg/dL Calcium Level 11.0 H 8.7-10.4 mg/dL Total Bilirubin 0.6 0.2-1.0 mg/dL Aspartate Amino Transferase (AST) 53 H 13-40 U/L Alanine Aminotransferase (ALT) 77 H 7-40 U/L Alkaline Phosphatase 81 46-116 U/L Total Protein 7.4 5.7-8.2 g/dL Albumin 4.8 3.2-4.8 g/dL [address] [address] Ph: [phone] DIAGNOSTIC IMAGING Diagnostic Imaging Report : [id number] Signed PATIENT: AMIRA CASPER ACCT: [id number] UNIT: [id number] : 1960 LOC: ER ROOM / BED: / AGE / SEX: 63 / F ADM STATUS: REG ER SERVICE 1547 ORDERING PHYSICIAN: ROBIN SAMANIEGO PROCEDURE(s): CXR1 - CHEST XRAY 1 VIEW REASON: CP ORDER NUMBER(s): [id number], ACCESSION NUMBER(s): [id number] EXAM: XR Chest, 1 View CLINICAL INDICATION: CP TECHNIQUE: Frontal view of the chest. COMPARISON: XY CHEST PORTABLE on DOS: 02/05/23, XY CHEST XRAY 1 VIEW on DOS: 10/25/22, XY CHEST PORTABLE on DOS: 08/16/22, CXRP on DOS: 12/25/21, CHEST PORTABLE on DOS: 12/25/21 FINDINGS: LUNGS AND PLEURAL SPACES: Pulmonary venous congestion. No consolidation. No pneumothorax. HEART: Unremarkable. No cardiomegaly. MEDIASTINUM: Unremarkable. Normal mediastinal contour. BONES/JOINTS: Unremarkable. No acute fracture. OTHER FINDINGS: . . IMPRESSION: Pulmonary venous congestion. HS:Y ATED BY: TOMEKA CHOPRA MD DICTATED DATE/TIME: 06/07/24 160 SIGNED BY: TOMEKA CHOPRA MD SIGNED DATE/TIME: 06/07/24 160 CC: X-Ray, Labs, Meds, VS Comment IMAGING: X-RAYS AND CT SCANS WERE REVIEWED AND INTERPRETED BY THIS PROVIDER, IMAGING SHOWS NO FRACTURES AND NO PATHOLOGICAL DISEASE. PENDING RADIOLOGY REVIEW. LABORATORY: LABS REVIEWED AND INTERPRETED BY THIS PROVIDER. NO SIGNIFICANT ABNORMALITIES NOTED. PATIENT HAS PRIOR MEDICAL VISITS REVIEWED. MED RECONCILIATION PERFORMED VITAL SIGNS REVIEWED Time of 1ST Reevaluation: 16:40 Reevaluation 1ST: Unchanged Patient Education/Counseling: Diagnosis, Treatment, Need For Follow Up (PATIENT ADVISED TO FOLLOW-UP IN THE EMERGENCY ROOM IN THE NEXT 24 TO 48 HOURS IF SYMPTOMS DO NOT IMPROVE. ADVISED FOLLOW-UP WITH PCP IN THE NEXT 3 TO 5 DAYS. PATIENT VERBALIZED UNDERSTANDING. ) Family Education/Counseling: No Family Present Departure 1 Departure Time of Disposition: 18:48 Impression: Primary Impression: Musculoskeletal chest pain Additional Impression: URI, acute Disposition: 01 HOME / SELF CARE / HOMELESS Condition: Fair e-Prescriptions Azithromycin (ZITHROMAX TABLET) 250 Mg Tb 250 MG PO DAILY for 5 Days, #6 TAB Prov: ROBIN SAMANIEGOP 06/07/24 Ibuprofen Micronized (Ibuprofen) 800 Mg Tab 800 MG PO TID PRN, #30 TAB Prov: ROBIN SAMANIEGO 06/07/24 Promethazine-Dm (Promethazine Dm 6.25-15 mg/5Ml) 1 Nahomy Nahomy 5 ML PO TID PRN, #240 ML Prov: ROBIN SAMANIEGO 06/07/24 Discharged With: Self Critical Care Note Critical Care Time?: No Stability Stability form required: No Heart Score Heart Score: Heart Score Response (Comments) Value History Slightly Suspicious 0 EKG Normal 0 Age >65 2 Risk Factors 1 or 2 risk factors 1 Troponin Normal limit 0 Total 3 I personally scribed for ROBIN SAMANIEGOP ([email or web address]) on 06/07/24 at 18:01. Electronically submitted by Sandy Virk ([email or web address]). I personally scribed for ROBIN SAMANIEGO INSTRUCTOR OF EDUCATION ([email or web address]) on 06/07/24 at 18:08. Electronically submitted by Sandy Virk ([email or web address]). ROBIN SAMANIEGO Jun 07, 2024 18:01
[2024-06-07 18:35] VITALS: BP 152/88; PULSE 68; RESP 18; TEMP 98.6; O2SAT 97
[2024-06-07] MEDS ORDERED: AZIT-185 PO (18:50)
[2024-06-07] MEDS ORDERED: IBUP-1455 PO (18:50)
[2024-06-07] MEDS ORDERED: PROM1SOL4 PO (18:50)
[2024-06-07 19:14] VITALS: PULSE 85; RESP 20; O2SAT 98
== END 2024-06-07 19:15 | disposition home or self-care (01) ==
LOC: ER 15:34
DX: J06.9 Acute upper respiratory infection, unspecified (principal); R07.89 Other chest pain; E78.5 Hyperlipidemia, unspecified; I10 Essential (primary) hypertension; E11.9 Type 2 diabetes mellitus without complications; I20.9 Angina pectoris, unspecified; R05.9 Cough, unspecified; F41.9 Anxiety disorder, unspecified; Z90.710 Acquired absence of both cervix and uterus; Z98.51 Tubal ligation status; Z98.890 Other specified postprocedural states
CPT/HCPCS: 36415; 71045; 80053; 82947; 82962; 84484; 85025; 93005

== ENCOUNTER 2025-03-08 09:22 | Inpatient (IN) | payer MEDICAID ==
[~2025-03-08] VITALS: Ht 152.4 cm; Wt 82.5 kg
[~2025-03-08 09:22] MED LIST changes: +AZIT-185 PO; +IBUP-1455 PO; +PROM1SOL4 PO
--- NOTE | 2025-03-08 09:54 | ED.PDOC ---
HPI Comments This is a 64-year-old female, with a history of hypertension, DM, who presents to the ED with a chief complaint of general chest discomfort, nasal congestion, and phlegm for x 2 weeks. Patient has no further complaints at this time and otherwise denies further associated symptoms of cough, SOB, palpitations, weakness, fever, or chills. Chief Complaint: Chest Pain Time Seen by MD: 09:44 Primary Care Provider: Emma Fierro Reviewed Notes: Medications, Allergies Allergies: Coded Allergies: NO KNOWN ALLERGIES (Unverified , 09/29/21) Home Meds Active Scripts Azithromycin (ZITHROMAX TABLET) 250 Mg Tb, 250 MG PO DAILY for 5 Days, #6 TAB Prov:ROBIN SAMANIEGO 06/07/24 Ibuprofen Micronized (Ibuprofen) 800 Mg Tab, 800 MG PO TID PRN, #30 TAB Prov:ROBIN SAMANIEGO 06/07/24 Promethazine-Dm (Promethazine Dm 6.25-15 mg/5Ml) 1 Nahomy Nahomy, 5 ML PO TID PRN, #240 ML Prov:ROBIN SAMANIEGOP 06/07/24 Reported Medications Metformin Hydrochloride (Metformin Hcl) 500 Mg Tab, 500 MG PO DAILY, % 02/07/23 Losartan Potassium (Losartan Potassium) 25 Mg Tab, 25 MG PO DAILY for 30 Days, MG 02/07/23 Hydrochlorothiazide (Hydrochlorothiazide) 12.5 Mg Cap, 1 CAP PO DAILY, CAP 02/07/23 Atorvastatin Calcium (ATORVASTATIN CALCIUM) 20 Mg Tab, 1 TAB PO DAILY, % 02/07/23 Aspirin (Aspir-Low) 81 Mg Tab, 81 MG PO DAILY, MG 02/07/23 Metformin Hydrochloride (Metformin Hcl) 500 Mg Tab, 0.5 TAB PO HS for 30 Days, MG 10/16/19 Losartan Potassium (Losartan Potassium) 25 Mg Tab, 25 MG PO HS for 30 Days, MG 10/16/19 Hydrochlorothiazide (Hydrochlorothiazide) 12.5 Mg Cap, 12.5 MG PO HS for 30 Days, MG 10/16/19 Simvastatin (Simvastatin) 20 Mg Tab, 20 MG PO HS for 30 Days 10/16/19 Information Source: Patient Mode of Arrival: Ambulatory Severity: Moderate Timing: Weeks Duration: Since onset Onset: At Rest, With Light Exertion, With Heavy Exertion Associated Signs and Symptoms: Other (chest discomfort, phlegm, congestion ) Past Medical History PAST MEDICAL HISTORY: Angina, Anxiety, DM, High Lipids, HTN Surgical History: BTL, , Hysterectomy 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 Hx Family History Family History: Reviewed,noncontributory to illness, Family hx of DM, Family hx of HTN Social History Smoker: Non-Smoker Alcohol: Rarely Drugs: Denies Drug Use Lives In: Home Constitutional: denies: chills, diaphoresis, fatigue, fever, malaise, sweats, weakness, others EENTM: reports: nose congestion, others (phlegm ); denies: blurred vision, double vision, ear bleeding, ear discharge, ear drainage, ear pain, ear ringing, eye pain, eye redness, hearing loss, mouth pain, mouth swelling, nasal discharge, nose bleeding, nose pain, photophobia, tearing, throat pain, throat swelling, voice changes Respiratory: denies: cough, hemoptysis, orthopnea, SOB at rest, shortness of breath, SOB with excertion, stridor, wheezing, others Cardiovascular: reports: chest pain; denies: dizzy spells, diaphoresis, Dyspnea on exertion, edema, irregular heart beat, left arm pain, lightheadedness, palpitations, PND, syncope, others Gastrointestinal: denies: abdomen distended, abdominal pain, blood streaked bowels, constipated, diarrhea, dysphagia, difficulty swallowing, hematemesis, melena, nausea, poor appetite, poor fluid intake, rectal bleeding, rectal pain, vomiting, others Genitourinary: denies: abnormal vagina bleeding, burning, dyspareunia, dysuria, flank pain, frequency, hematuria, incontinence, pain, , vagina discharge, urgency, others Neurological: denies: dizziness, fainting, headache, left sided numbness, left sided weakness, numbness, paresthesia, pre-existing deficit, right sided numbness, right sided weakness, seizure, speech problems, tingling, tremors, weakness, others Musculoskeletal: denies: back pain, gout, joint pain, joint swelling, muscle pain, muscle stiffness, neck pain, others Integumetry: denies: bruises, change in color, change in hair/nails, dryness, laceration, lesions, lumps, rash, wounds, others Allergic/Immunocompromised: denies: Difficulty Healing, Frequent Infections, Hives, Itching, others Hematologic/Lymphatic: denies: anemia, blood clots, easy bleeding, easy bruising, swollen glands, others Endocrine: denies: excessive hunger, excessive sweating, excessive thirst, excessive urination, flushing, intolerance to cold, intolerance to heat, unexplained weight gain, unexplained weight loss, others Psychiatric: denies: anxiety, bipolar disorder, depression, hopeless, panic disorder, schizophrenia, sleepless, suicidal, others All Other Systems: Reviewed and Negative Physical Exam General Appearance: Moderate Distress HEENT: Normal ENT Inspection, Pharynx Normal, TMs Normal Neck: Full Range of Motion, Non-Tender, Normal, Normal Inspection Respiratory: Chest Non-Tender, Lungs Clear, No Accessory Muscle Use, No Respiratory Distress, Normal Breath Sounds Cardiovascular: No Edema, No JVD, No Murmur, No Gallop, Normal Peripheral Pulses, Regular Rate/Rhythm Breast Exam: Deferred Gastrointestinal: No Organomegaly, Non Tender, No Pulsatile Mass, Normal Bowel Sounds, Soft Genitalia: Deferred Pelvic: Deferred Rectal: Deferred Extremities: No calf tenderness, Normal capillary refill, Normal inspection, Normal range of motion, Non-tender, No pedal edema Musculoskeletal : Apperance: Normal Neurologic: Alert, transition mgr rn II-XII nml as Tested, No Motor Deficits, Normal Affect, Normal Mood, No Sensory Deficits Cerebellar Function: Normal Reflexes: Normal Skin: Dry, Normal Color, Warm Lymphatic: No Adenopathy EKG EKG : Pulse Rate (adult): 71 [place]: Normal Cardiac Rhythm: NSR Block: None Hypertrophy: None ST: Normal Was a procedure done? Was a procedure done?: No CP Differential Dx Differential Diagnosis: A-fib, A-Flutter, Angina, Anxiety / Panic Attack, Atrial Dysrhythmia, Electrolyte Disorder, Sinus Tachycardia Differential Diagnosis: HTN Essential, HTN Accelerated Differential Diagnosis: Angina, Aortic dissection, Chest Wall Pain, Cholelithiasis, Esophageal reflux/spasm, Gastritis, Pneumonia X-Ray, Labs, Meds, VS Vital Signs Date Time Temp Pulse Resp B/P (MAP) Pulse Ox O2 Delivery O2 Flow Rate FiO2 03/08/25 10:32 70 03/08/25 09:54 71 03/08/25 09:34 98.1 72 18 151/96 96 98.1 03/08/25 09:27 71 Lab Test 03/08/25 10:45 03/08/25 09:48 Range/Units Troponin I High Sensitivity 4 4 </=34 ng/L White Blood Count 4.8 4.4-10.8 10^3/uL Red Blood Count 4.27 4.0-5.20 10^6/uL Hemoglobin 13.7 12.2-16.2 g/dL Hematocrit 41.1 36.0-46.0 % Mean Corpuscular Volume 96.3 80.0-100.0 fL Mean Corpuscular Hemoglobin 32.1 H 28.0-32.0 pg Mean Corpuscular Hemoglobin Concent 33.3 32.0-36.0 g/dL Red Cell Distribution Width 14.9 H 11.8-14.3 % Platelet Count 275 140-450 10^3/uL Mean Platelet Volume 8.1 6.9-10.8 fL Neutrophils (%) (Auto) 60.4 37.0-80.0 % Lymphocytes (%) (Auto) 30.9 10.0-50.0 % Monocytes (%) (Auto) 7.5 0.0-12.0 % Eosinophils (%) (Auto) 0.9 0.0-7.0 % Basophils (%) (Auto) 0.3 0.0-2.0 % Neutrophils # (Auto) 2.9 1.6-8.6 10 ^3/uL Lymphocytes # (Auto) 1.5 0.4-5.4 10 ^3/uL Monocytes # (Auto) 0.4 0-1.3 10 ^3/uL Eosinophils # (Auto) 0 0-0.8 10 ^3/uL Basophils # (Auto) 0 0-0.2 10 ^3/uL Nucleated Red Blood Cells 0.1 % Sodium Level 141 136-145 mmol/L Potassium Level 3.7 3.5-5.1 mmol/L Chloride Level 102 98-107 mmol/L Carbon Dioxide Level 29 20-31 mmol/L Anion Gap 10 5-15 Blood Urea Nitrogen 8 L 9-23 mg/dL Creatinine 0.92 0.550-1.02 mg/dL Glomerular Filtration Rate Calc 69 >90 mL/min BUN/Creatinine Ratio 8.7 L 10.0-20.0 Serum Glucose 115 H 74-106 mg/dL Calcium Level 10.1 8.7-10.4 mg/dL Current Medications Medications (Trade) Dose Ordered Sig/Omid Route Start Time Stop Time Status Last Admin Aspirin 325 mg ONCE ONCE PO 03/08/25 10:00 03/08/25 10:01 DC 03/08/25 10:01 [facility] [id number] [place] [id number] Ph: [phone] DIAGNOSTIC IMAGING Diagnostic Imaging Report : [id number] Signed PATIENT: AMIRA CASPER ACCT: [id number] UNIT: [id number] : 1960 LOC: ER ROOM / BED: / AGE / SEX: 64 / F ADM STATUS: REG ER SERVICE 2 ORDERING PHYSICIAN: JOLEEN SHEETS MD PROCEDURE(s): CXR1 - CHEST XRAY 1 VIEW REASON: chest pressure ORDER NUMBER(s): [id number], ACCESSION NUMBER(s): [id number] CLINICAL HISTORY: chest pressure TECHNIQUE: Single view of the chest was obtained. COMPARISON: XY CHEST XRAY 1 VIEW on DOS: 06/07/24, CT CHEST WITHOUT CONTRAST on DOS: 02/08/23, XY CHEST PORTABLE on DOS: 02/05/23, XY CHEST TWO VIEWS ROUTINE on DOS: 01/11/23, XY CHEST XRAY 1 VIEW on DOS: 10/25/22 FINDINGS: The heart size and pulmonary vasculature are normal. The lungs are clear. IMPRESSION: NO ACUTE CARDIOPULMONARY PROCESS. ATED BY: QING BRITO MD DICTATED DATE/TIME: 03/08/251006 SIGNED BY: QING BRITO MD SIGNED DATE/TIME: 03/08/25 1007 CC: Patient alert. Came in because of chest pain. EKG reviewed does not show any acute changes. Vitals stable. Answering questions. Was given aspirin. WBC within normal limits. Hemoglobin within normal limits. Has risk factors for coronary artery disease. Explained to the patient. Continue monitoring. Images Reviewed?: Images reviewed and evaluated by me Time of 1ST Reevaluation: 10:38 Reevaluation 1ST: Unchanged Patient Education/Counseling: Diagnosis, Treatment Family Education/Counseling: No Family Present SEPSIS Sepsis Screen Date sepsis recognized/suspect: Mar 08, 2025 Time Sepsis recognized/suspect: 935 Recent Procedure: No On Antibiotic Therapy: No Respiratory Rate >20: No Heart Rate >90: No Temp<36 C (96.8 F) or >38.3 C: No SBP <90 or MAP <65 mmHG: No New Acute Mental Status Change: No Is the patient on CPAP, BIPAP,: No Physician Orders Chest Xray 1 View (03/08/25 09:33) Vital Signs Date Time Temp Pulse Resp B/P (MAP) Pulse Ox O2 Delivery O2 Flow Rate FiO2 03/08/25 10:32 70 03/08/25 09:54 71 03/08/25 09:34 98.1 72 18 151/96 96 98.1 03/08/25 09:27 71 Laboratory Tests Test 03/08/25 09:48 White Blood Count 4.8 10^3/uL (4.4-10.8) Medications Medications Dose Ordered Sig/Omid Route Start Time Stop Time Status Last Admin Dose Admin Aspirin 325 mg ONCE ONCE PO 03/08/25 10:00 03/08/25 10:01 DC 03/08/25 10:01 Departure 1 Departure Time of Disposition: 11:12 Impression: Primary Impression: Chest pain of unknown etiology Disposition: ADMITTED INPATIENT Admit to: Med Surg Condition: Guarded Critical Care Note Critical Care Time?: No Stability Stability form required: No Heart Score Heart Score: Heart Score Response (Comments) Value History Moderate Suspicious 1 EKG Normal 0 Age >65 2 Risk Factors 1 or 2 risk factors 1 Troponin Normal limit 0 Total 4 I personally scribed for JOLEEN SHEETS MD ([email or web address]) on 03/08/25 at 09:54. Electronically submitted by Shereen Dorado ([email or web address]). I personally scribed for JOLEEN SHEETS MD ([email or web address]) on 03/08/25 at 15:13. Electronically submitted by Jesse Perez ([email or web address]). JOLEEN SHEETS MD Mar 08, 2025 09:54
[2025-03-08 10:01] LABS: Hematocrit 41.1 % (36.0-46.0); Hemoglobin 13.7 g/dL (12.2-16.2); Mean Corpuscular Hemoglobin 32.1 pg (28.0-32.0); Mean Corpuscular Volume 96.3 fL (80.0-100.0); Nucleated Red Blood Cells % 0.1 %
[2025-03-08 10:10] LABS: Chloride 102 mmol/L (98-107); Potassium 3.7 mmol/L (3.5-5.1); Sodium 141 mmol/L (136-145)
--- NOTE | 2025-03-08 10:10 | DVH ---
CLINICAL HISTORY: chest pressure TECHNIQUE: Single view of the chest was obtained. COMPARISON: XY CHEST XRAY 1 VIEW on DOS: 06/07/24, CT CHEST WITHOUT CONTRAST on DOS: 02/08/23, XY CHEST PORTABLE on DOS: 02/05/23, XY CHEST TWO VIEWS ROUTINE on DOS: 01/11/23, XY CHEST XRAY 1 VIEW on DOS: FINDINGS: The heart size and pulmonary vasculature are normal. The lungs are clear. IMPRESSION: NO ACUTE CARDIOPULMONARY PROCESS.
[2025-03-08 10:11] LABS: Anion Gap 10 (5-15); Calcium 10.1 mg/dL (8.7-10.4); Carbon Dioxide 29 mmol/L (20-31)
[2025-03-08 10:16] LABS: BUN/Creatinine Ratio 8.7 (10.0-20.0)
[2025-03-08 10:19] LABS: Blood Urea Nitrogen 8 mg/dL (9-23); Glucose 115 mg/dL (74-106)
--- NOTE | 2025-03-08 10:34 | ECG ---
[facility] Test Date: 2025-03-08 Test Time: 10:32:55 Pat Name: AMIRA CASPER Department: Room: 0249T Gender: F Patient Access Director: erickson : 1960 Requested By: JOLEEN SHEETS Order Number: [id number] Reading MD: César Whittington Measurements Intervals [place] Rate: 70 P: 58 DC: 163 QRS: 34 QRSD: 91 T: 31 QT: 431 QTc: 466 Interpretive Statements Sinus rhythm Borderline T abnormalities, anterior leads Electronically Signed On 03-10-2025 15:09:47 PDT by César Whittington Please click the below link to view image of tracing.
[2025-03-08] MEDS ORDERED: ONDANSETRON HCL 4 MG/2 ML VIAL IV PRN (12:15)
[2025-03-08] MEDS ORDERED: DEXTROSE (50%) 50ML SYRG IV PRN (12:15)
[2025-03-08] MEDS ORDERED: ACETAMINOPHEN 325 MG TAB PO PRN (12:15)
[2025-03-08] MEDS ORDERED: NITROGLYCERIN 0.4 MG SL TAB SL PRN (12:15)
[2025-03-08 12:25] VITALS: BP 163/77; PULSE 65; RESP 19; TEMP 97.6; O2SAT 97
[2025-03-08] MEDS ORDERED: MORPHINE SULFATE 4 MG/ML SYR/VIAL IV PRN (12:30)
--- NOTE | 2025-03-08 13:54 | DVHHP2 ---
History of Present Illness Reason for Visit: Chest pain History of Present Illness 64-year-old female presents for evaluation of chest pain. Patient reports developing substernal nonradiating chest pressure with associated shortness for breath palpitations. No nausea or vomiting. Past Medical History Diabetes mellitus, dyslipidemia, hypertension, anxiety Past Surgical History Hysterectomy, , BTL Family History Noncontributory Smoke: No ALCOHOL: none Drugs: None Lives: with Family Review of Systems Review of Systems Review of systems are currently negative otherwise addressed in HPI. Allergies: Coded Allergies: NO KNOWN ALLERGIES (Unverified , 09/29/21) Medications Current Medications Medications Dose Ordered Sig/Omid Route Start Time Stop Time Status Last Admin Dose Admin Hydrochlorothiazide 12.5 mg DAILY PO 03/09/25 10:00 Aspirin 81 mg DAILY PO 03/09/25 10:00 Atorvastatin Calcium 20 mg HS PO 03/08/25 22:00 Losartan Potassium 25 mg HS PO 03/08/25 22:00 Diagnostic Test (Pha) 1 strip ACHS 03/08/25 17:00 Insulin Human Regular ACHS SC 03/08/25 17:00 Dextrose 50 ml UD PRN IV 03/08/25 12:15 Ondansetron HCl 4 mg Q4HP PRN IV 03/08/25 12:15 Acetaminophen 650 mg Q6HP PRN PO 03/08/25 12:15 Nitroglycerin 0.4 mg Q5MINP PRN SL 03/08/25 12:15 Morphine Sulfate 2 mg Q30M PRN IV 03/08/25 12:30 Exam Vital Signs Vital Signs Date Time Temp Pulse Resp B/P (MAP) Pulse Ox O2 Delivery O2 Flow Rate FiO2 03/08/25 10:32 70 03/08/25 09:34 98.1 18 151/96 96 98.1 Exam Gen: 64-year-old female in mild distress. Skin: Warm, dry, normal color and texture, no rash. HEENT: Normocephalic atraumatic, mucous membranes moist and pink. Neck: Cervical and supraclavicular nodes normal without enlargement, trachea is midline, thyroid gland is normal without masses. Pulmonary: Clear to auscultation and percussion bilaterally. Cardiac: Regular rate and rhythm. No murmur Abdomen: Soft, nontender, nondistended, bowel sounds present all 4 quadrants, no guarding, no rigidity, no organomegaly. Extremities: No cyanosis, clubbing, no edema Neuro: Cranial nerves II through XII grossly intact, normal affect and speech, no focal motor deficits. Labs/Xrays ORDERING PHYSICIAN: JOLEEN SHEETS MD PROCEDURE(s): CXR1 - CHEST XRAY 1 VIEW REASON: chest pressure ORDER NUMBER(s): [id number], ACCESSION NUMBER(s): [id number] CLINICAL HISTORY: chest pressure TECHNIQUE: Single view of the chest was obtained. COMPARISON: XY CHEST XRAY 1 VIEW on DOS: 06/07/24, CT CHEST WITHOUT CONTRAST on DOS: 02/08/23, XY CHEST PORTABLE on DOS: 02/05/23, XY CHEST TWO VIEWS ROUTINE on DOS: 01/11/23, XY CHEST XRAY 1 VIEW on DOS: 10/25/22 FINDINGS: The heart size and pulmonary vasculature are normal. The lungs are clear. IMPRESSION: NO ACUTE CARDIOPULMONARY PROCESS. ATED BY: QING MENDOZA MD DICTATED DATE/TIME: 03/08/25 1007 Labs Test 03/08/25 10:45 03/08/25 09:48 Range/Units Troponin I High Sensitivity 4 </=34 ng/L White Blood Count 4.8 4.4-10.8 10^3/uL Red Blood Count 4.27 4.0-5.20 10^6/uL Hemoglobin 13.7 12.2-16.2 g/dL Hematocrit 41.1 36.0-46.0 % Mean Corpuscular Volume 96.3 80.0-100.0 fL Mean Corpuscular Hemoglobin 32.1 H 28.0-32.0 pg Mean Corpuscular Hemoglobin Concent 33.3 32.0-36.0 g/dL Red Cell Distribution Width 14.9 H 11.8-14.3 % Platelet Count 275 140-450 10^3/uL Mean Platelet Volume 8.1 6.9-10.8 fL Neutrophils (%) (Auto) 60.4 37.0-80.0 % Lymphocytes (%) (Auto) 30.9 10.0-50.0 % Monocytes (%) (Auto) 7.5 0.0-12.0 % Eosinophils (%) (Auto) 0.9 0.0-7.0 % Basophils (%) (Auto) 0.3 0.0-2.0 % Neutrophils # (Auto) 2.9 1.6-8.6 10 ^3/uL Lymphocytes # (Auto) 1.5 0.4-5.4 10 ^3/uL Monocytes # (Auto) 0.4 0-1.3 10 ^3/uL Eosinophils # (Auto) 0 0-0.8 10 ^3/uL Basophils # (Auto) 0 0-0.2 10 ^3/uL Nucleated Red Blood Cells 0.1 % Sodium Level 141 136-145 mmol/L Potassium Level 3.7 3.5-5.1 mmol/L Chloride Level 102 98-107 mmol/L Carbon Dioxide Level 29 20-31 mmol/L Anion Gap 10 5-15 Blood Urea Nitrogen 8 L 9-23 mg/dL Creatinine 0.92 0.550-1.02 mg/dL Glomerular Filtration Rate Calc 69 >90 mL/min BUN/Creatinine Ratio 8.7 L 10.0-20.0 Serum Glucose 115 H 74-106 mg/dL Calcium Level 10.1 8.7-10.4 mg/dL SEPSIS Sepsis Screen Date sepsis recognized/suspect: Mar 08, 2025 Time Sepsis recognized/suspect: 935 Recent Procedure: No On Antibiotic Therapy: No Respiratory Rate >20: No Heart Rate >90: No Temp<36 C (96.8 F) or >38.3 C: No SBP <90 or MAP <65 mmHG: No New Acute Mental Status Change: No Is the patient on CPAP, BIPAP,: No Physician Orders Chest Xray 1 View (03/08/25 09:33) Urinalysis (03/08/25 09:50) Hydrochlorothiazide Tablet (Hydrochlorot (03/09/25 10:00) Aspirin Tablet (03/09/25 10:00) Atorvastatin (Lipitor) (03/08/25 22:00) Losartan Tablet (Cozaar Tablet) (03/08/25 22:00) Basic Metabolic Panel (03/09/25 04:00) Glucose Blood (Accu-Chek Comfort Curve T (03/08/25 17:00) Insulin R (Human) (Insulin R) (03/08/25 17:00) Dextrose 50% Syringe (03/08/25 12:15) Admit (03/08/25 12:01) Ondansetron Hcl (Zofran) (03/08/25 12:15) Cardiac Diet-2gna,Lofat,Lochol (03/08/25 Lunch) Echo 2d Mode Cardiac Dop (03/08/25 12:01) Condition: Fair (03/08/25 12:01) Acetaminophen Tablet (Tylenol Tablet) (03/08/25 12:15) Bedrest With Bathroom Privileg (03/08/25 12:01) Nitroglycerin Sublingual (Ntrostat Subli (03/08/25 12:15) Stat Ekg For Chest Pain (03/08/25 12:01) Notify Md Of Changes From Base (03/08/25 12:01) Golf Ball Marker For 24 Hours (03/08/25 12:01) Emergency Dysrhythmia Protocol (03/08/25 12:01) Rhythm Strips Once Every Shift (03/08/25 12:01) Oxygen By Nasal Cannula (03/08/25 12:01) Morphine Sulfate Injection (03/08/25 12:30) Vital Signs Date Time Temp Pulse Resp B/P (MAP) Pulse Ox O2 Delivery O2 Flow Rate FiO2 03/08/25 10:32 70 03/08/25 09:54 71 03/08/25 09:34 98.1 72 18 151/96 96 98.1 03/08/25 09:27 71 Laboratory Tests Test 03/08/25 09:48 White Blood Count 4.8 10^3/uL (4.4-10.8) Medications Medications Dose Ordered Sig/Omid Route Start Time Stop Time Status Last Admin Dose Admin Aspirin 325 mg ONCE ONCE PO 03/08/25 10:00 03/08/25 10:01 DC 03/08/25 10:01 325 MG Assessment/Plan Assessment/Plan Assessment Chest pain rule out ACS Diabetes mellitus Hypertension Plan Admit the patient to telemetry to the hospitalist ACS protocol Resume home medications Continue treatment per orders. Plan discussed with: Patient My Orders Orders - AUDREY PHILLIPS Procedure Category Date Status Time Hydrochlorothiazide PHA 03/09/25 In Process Tablet (Hydrochlorot 10:00 Aspirin Tablet PHA 03/09/25 In Process 10:00 Atorvastatin (Lipitor) PHA 03/08/25 In Process 22:00 Losartan Tablet PHA 10/25/25 In Process (Cozaar Tablet) 22:00 Basic Metabolic Panel LAB 03/09/25 Verified 04:00 Glucose Blood PHA 03/08/25 In Process (Accu-Chek Comfort 17:00 Insulin R (Human) PHA 03/08/25 In Process (Insulin R) 17:00 Dextrose 50% Syringe PHA 03/08/25 In Process 12:15 Admit ADMIT 03/08/25 Transmitted 12:01 Ondansetron Hcl PHA 03/08/25 In Process (Zofran) 12:15 Cardiac DIET 03/08/25 Transmitted Diet-2gna,Lofat,Lochol Lunch Echo 2d Mode Cardiac US 03/08/25 Logged DOP 12:01 Condition: Fair [facility] 03/08/25 In Process 12:01 Acetaminophen Tablet PHA 03/08/25 In Process (Tylenol Tablet) 12:15 Bedrest With Bathroom [facility] 03/08/25 In Process Privileg 12:01 Nitroglycerin PHA 03/08/25 In Process Sublingual (Ntrostat 12:15 Stat Ekg For Chest [facility] 03/08/25 In Process Pain 12:01 Notify Of Changes [facility] 03/08/25 In Process From Base 12:01 Golf Ball Marker For [facility] 03/08/25 In Process 24 Hours 12:01 Emergency Dysrhythmia [facility] 03/08/25 In Process Protocol 12:01 Rhythm Strips Once [facility] 03/08/25 In Process Every Shift 12:01 Oxygen By Nasal RT 03/08/25 Transmitted Cannula 12:01 Morphine Sulfate PHA 03/08/25 In Process Injection 12:30 Date of Service: Mar 08, 2025 Billing Provider: AUDREY PHILLIPS Common Visit Codes: [id number] INP/OBS CARE (HIGH) AUDREY PHILLIPS Mar 08, 2025 13:54
[2025-03-08 14:57] LABS: Urine Protein, UAD Negative (Negative)
[2025-03-08 17:00] VITALS: BP 146/68; PULSE 68; RESP 19; TEMP 97.5; O2SAT 98
[2025-03-08] MEDS: ACCU-CHEK COMFORT CURVE STRIP VI SCH (17:00)
[2025-03-08] MEDS: InsuLIN REG 1unit/0.01ml Soln (100units/ml) SC SCH (17:00)
[2025-03-08 18:30] VITALS: BP 145/79; PULSE 53; RESP 17; TEMP 97.5; O2SAT 99
[2025-03-08 20:00] VITALS: PULSE 58; PULSE 66; RESP 18; O2SAT 98
[2025-03-08 21:00] VITALS: BP 111/54; PULSE 66; RESP 17; TEMP 98.4; O2SAT 98
[2025-03-08] MEDS: ATORVASTATIN 20 MG TAB PO SCH (21:49)
[2025-03-08] MEDS: LOSARTAN POTASSIUM 25 MG TAB PO SCH (21:51)
[2025-03-09] VITALS (8 sets, daily range): BP systolic 104–140; BP diastolic 51–68; PULSE 48–80; RESP 15–18; TEMP 97.7–98.6; O2SAT 94–98
[2025-03-09 06:48] LABS: Chloride 102 mmol/L (98-107); Potassium 3.5 mmol/L (3.5-5.1); Sodium 141 mmol/L (136-145)
[2025-03-09 06:49] LABS: Anion Gap 9 (5-15); Carbon Dioxide 30 mmol/L (20-31)
[2025-03-09 06:50] LABS: Calcium 9.8 mg/dL (8.7-10.4)
[2025-03-09 06:54] LABS: BUN/Creatinine Ratio 11.3 (10.0-20.0); Blood Urea Nitrogen 11 mg/dL (9-23)
[2025-03-09 06:56] LABS: Glucose 109 mg/dL (74-106)
[2025-03-09] MEDS: hydroCHLOROthiazide 25 MG TAB PO SCH (11:17)
--- NOTE | 2025-03-09 12:17 | DVHPN2 ---
Subjective Patient continues to have heaviness in chest, associated with mucus production. Reviewed: Care Plan, H&P, Labs, Medications Changes from previous H/P or p: No Changes General: Per HPI Objective Vitals Vital Signs Date Time Temp Pulse Resp B/P (MAP) Pulse Ox O2 Delivery O2 Flow Rate FiO2 03/09/25 11:17 140/68 03/09/25 09:00 98.6 51 18 96 98.6 03/08/25 20:00 Room Air* 0 21 Intake/Output Intake and Output 03/09/25 07:00 Intake Total 400 ml Balance 400 ml Intake Oral 400 ml # Voids 3 General Appearance: Alert, Oriented X3, Cooperative HEENT: Atraumatic, PERRLA Neck: Carotid Bruits Sullivan Lungs: Clear to auscultation, Normal air movement Cardiovascular: Regular rate, Normal S1, Normal S2 Abdomen: Normal bowel sounds, Soft, No tenderness Musculoskeletal: Normal sensory function, Normal motor function Neuro: Normal gait, Normal speech Psych/Mental Status: Mental status NL, Mood NL Medications Current Medications Medications Dose Ordered Sig/Omid Route Start Time Stop Time Status Last Admin Dose Admin Hydrochlorothiazide 12.5 mg DAILY PO 03/09/25 10:00 03/09/25 11:17 12.5 MG Aspirin 81 mg DAILY PO 03/09/25 10:00 03/09/25 11:15 81 MG Atorvastatin Calcium 20 mg HS PO 03/08/25 22:00 03/08/25 21:49 20 MG Losartan Potassium 25 mg HS PO 03/08/25 22:00 Diagnostic Test (Pha) 1 strip ACHS 03/08/25 17:00 03/09/25 11:18 1 STRIP Insulin Human Regular ACHS SC 03/08/25 17:00 03/09/25 07:00 2 UNITS Dextrose 50 ml UD PRN IV 03/08/25 12:15 Ondansetron HCl 4 mg Q4HP PRN IV 03/08/25 12:15 Acetaminophen 650 mg Q6HP PRN PO 03/08/25 12:15 Nitroglycerin 0.4 mg Q5MINP PRN SL 03/08/25 12:15 Morphine Sulfate 2 mg Q30M PRN IV 03/08/25 12:30 Laboratory Results Laboratory Tests 03/08/25 09:48 03/09/25 05:42 Chemistry Test 03/09/25 05:42 Calcium Level 9.8 mg/dL (8.7-10.4) Urinalysis Test 03/08/25 14:10 Urine Color Light-yellow (Yellow) Urine Clarity Clear (Clear) Urine pH 7.0 (5.0-9.0) Urine Specific [place] 1.016 (1.001-1.035) Urine Protein Negative (Negative) Urine Ketones Negative (Negative) Urine Blood Negative /uL (Negative) Urine Nitrite Negative (Negative) Urine Bilirubin Negative (Negative) Urine Urobilinogen Normal mg/dL (Negative) Urine Leukocyte Esterase Negative /uL (Negative) Urine RBC None seen /hpf (0 - 4) Urine Microscopic WBC 1 /HPF (0-5) Urine Squamous Epithelial Cells Few /hpf (<5) Urine Bacteria None seen /hpf (None Seen) Urine Glucose Normal mg/dL (Normal) Labs and/or images reviewed: Image(s) reviewed by me Assessment/Plan Assessment/Plan Impression: -chest pain, probably associated with PUD -obesity -primary hypertension -diabetes mellitus -dyslipidemia Plan: -further discussion with the patient reveals that her chest pain is worse upon waking in the morning. She also reports having increased mucus production, in addition to taking Rolaids and other antacids without relief for the past two weeks. She states that she was on acid reducing agents in the past which did not work. EKG, unremarkable. Troponins negative x2. Patient had left heart catheterization in January 2023 without any CAD requiring intervention at that time. -GI consultation -Protonix 40 mg IV twice a day -GI cocktail -stop aspirin -continue antihypertensives -regular insulin sliding scale Total time spent with patient discussing and formulating plan of care: 35 minutes. This medical document was created using an electronic medical record system with [employer]™ dictation system. Although this document has been carefully reviewed, there may still be some phonetic and typographical errors. These areas are purely typographical due to imperfections of the software programs, and do not reflect any compromise in the patient's medical care. Plan discussed with: Patient, Other (RN) My Orders Orders - KRISTEN NAILS FACTORER Procedure Category Date Status Time Pantoprazole PHA 03/09/25 Verified (Protonix) 22:00 Alum & Mag PHA 03/09/25 Verified Hydrox-Simethicone 12:15 Date of Service: Mar 09, 2025 Billing Provider: KRISTEN NAILS NP Common Visit Codes: [id number] INP/OBS CARE(HIGH) KRISTEN NAILS NP Mar 09, 2025 12:17
--- NOTE | 2025-03-09 13:32 | DVHSR ---
APPROVED REPORT EXAM: Two-dimensional and M-mode echocardiogram with Doppler and color Doppler. Blood Pressure: 122/66 mmHg INDICATION Chest Pain RISK FACTORS Obesity: Height: 5'0", Weight: 176 DIMENSIONS LVDd4.1 (3.8-5.7cm)LA (2D)3.4 (1.9-4.0cm)Aortic Root3.3 (2.0-3.7cm) LVDs2.8 (2.5-4.0cm)LA (MM) (1.9-4.0cm)Aortic Cusp Exc2.0 (1.5-2.0cm) EF (%) 60.0 (55-70%)Rt. Atrium3.5 (1.9-4.0cm)Asc. Aorta cm IVSd1.2 (0.7-1.1cm)RV (D) (1.8-2.4cm) PWd1.0 (0.7-1.1cm) Mitral Valve MitralMitral Stenosis E wave0.96m/sMV Mean GR.mmHg A wave0.77m/sMV Peak GR.mmHg E/A ratio1.22D MVAcm2 DECEL [id number] 1/2 Timems Aortic Valve Aortic ValveAortic Stenosis V11.18m/Ruthie Mean GR.4mmHg V21.40m/Ruthie Peak GR.8mmHg LVOT Diameter2.1 (1.8-2.4cm)Doppler AVA2.92cm2 Pulmonic Valve V20.86m/s Other Information Technically limited study due to body habitus. Conclusion lvef 60% normal rv function normal atria no severe valve abnormaliteis noted pericardial fat pad noted
[2025-03-09] MEDS: MAALOX PLUS or MAALOX 30 ML PO ONE (13:42)
--- NOTE | 2025-03-09 16:04 | DVHINCON2 ---
Date of service: Mar 09, 2025 Referring Physician Adiel Reason for Consultation Suspected GERD History of Present Illness Patient is a 64-year-old female admitted with chest pain with a history of hypertension, hyperlipidemia, diabetes, and GERD. Patient states that she has had a heaviness in her chest. She was ruled out for acute coronary cause. Patient states that she has had these symptoms for some time. She complains of an inability to belch. Sometimes if symptoms have not revealed with antacids. Patient denies any history of prior EGD format to her knowledge, dysphagia, odynophagia, hematemesis or melena. Patient states that her symptoms have improved since admission. Past Medical History As above Past Surgical History BTL Cholecystectomy Hysterectomy Family History: No pertinent family history G8 MOTHER, Onset:Unknown (Unknown) G8 FATHER, Onset:Unknown (Unknown) Family History Noncontributory Social History No significant tobacco alcohol or recreational drug use Allergies: Coded Allergies: NO KNOWN ALLERGIES (Unverified , 09/29/21) Home Meds Active Scripts Azithromycin (ZITHROMAX TABLET) 250 Mg Tb, 250 MG PO DAILY for 5 Days, #6 TAB Prov:ROBIN SAMANIEGO 06/07/24 Ibuprofen Micronized (Ibuprofen) 800 Mg Tab, 800 MG PO TID PRN, #30 TAB Prov:ROBIN SAMANIEGO 06/07/24 Promethazine-Dm (Promethazine Dm 6.25-15 mg/5Ml) 1 Nahomy Nahomy, 5 ML PO TID PRN, #240 ML Prov:ROBIN SAMANIEGO 06/07/24 Reported Medications Metformin Hydrochloride (Metformin Hcl) 500 Mg Tab, 500 MG PO DAILY, % 02/07/23 Losartan Potassium (Losartan Potassium) 25 Mg Tab, 25 MG PO DAILY for 30 Days, MG 02/07/23 Hydrochlorothiazide (Hydrochlorothiazide) 12.5 Mg Cap, 1 CAP PO DAILY, CAP 02/07/23 Atorvastatin Calcium (ATORVASTATIN CALCIUM) 20 Mg Tab, 1 TAB PO DAILY, % 02/07/23 Aspirin (Aspir-Low) 81 Mg Tab, 81 MG PO DAILY, MG 02/07/23 Metformin Hydrochloride (Metformin Hcl) 500 Mg Tab, 0.5 TAB PO HS for 30 Days, MG 10/16/19 Losartan Potassium (Losartan Potassium) 25 Mg Tab, 25 MG PO HS for 30 Days, MG 10/16/19 Hydrochlorothiazide (Hydrochlorothiazide) 12.5 Mg Cap, 12.5 MG PO HS for 30 Days, MG 10/16/19 Simvastatin (Simvastatin) 20 Mg Tab, 20 MG PO HS for 30 Days 10/16/19 Current Medications Current Medications Medications (Trade) Dose Ordered Sig/Omid Route PRN Reason Start Time Stop Time Status Last Admin Hydrochlorothiazide (hydroCHLOROthiazide TABLET) 12.5 mg DAILY PO 03/09/25 10:00 03/09/25 11:17 Aspirin 81 mg DAILY PO 03/09/25 10:00 03/09/25 12:15 DC 03/09/25 11:15 Atorvastatin Calcium (Lipitor) 20 mg HS PO 03/08/25 22:00 03/08/25 21:49 Losartan Potassium (Cozaar Tablet) 25 mg HS PO 03/08/25 22:00 Diagnostic Test (Pha) (Accu-Chek Comfort Curve T) 1 strip ACHS 03/08/25 17:00 03/09/25 11:18 Insulin Human Regular (InsuLIN R) ACHS SC 03/08/25 17:00 03/09/25 07:00 Pantoprazole Sodium (Protonix) 40 mg BID IV 03/09/25 22:00 Review of Systems 12 point review of systems as per HPI No headaches or dizziness No shortness of breath or palpitations No cough or wheeze No dysuria hematuria No arthralgias or myalgias history of diabetes no hypothyroidism No stroke or seizure No depression anxiety or psychosis No history of anemia or malignancy No rashes bruises or pruritus No visual changes or hearing loss Vital Signs Vital Signs Date Time Temp Pulse Resp B/P (MAP) Pulse Ox O2 Delivery O2 Flow Rate FiO2 03/09/25 13:00 98.1 54 18 135/61 (85) 95 98.1 03/09/25 08:00 Room Air* 0 21 Physical Exam General: Well-developed well-nourished HEENT: NC/AT EOMI PERRLA O/P clear, no JVD or cervical lymphadenopathy, no scleral icterus Heart: Regular rate and rhythm, no murmurs rubs or gallops Lungs: Clear to auscultation bilaterally, no wheezes rales or rhonchi Abdomen: Soft, nontender, nondistended, no organomegaly, normoactive bowel sounds Extremity: No clubbing cyanosis or edema, no rashes or bruises Neuro: Cranial nerves 2-12 grossly intact, moves all four extremities, no asterixis Labs/Diagnostic Data Labs Test 03/09/25 11:21 03/09/25 05:42 03/08/25 14:10 03/08/25 10:45 Range/Units POC Glucose 99 70-106 mg/dl Sodium Level 141 136-145 mmol/L Potassium Level 3.5 3.5-5.1 mmol/L Chloride Level 102 98-107 mmol/L Carbon Dioxide Level 30 20-31 mmol/L Anion Gap 9 5-15 Blood Urea Nitrogen 11 9-23 mg/dL Creatinine 0.97 0.550-1.02 mg/dL Glomerular Filtration Rate Calc 64 >90 mL/min BUN/Creatinine Ratio 11.3 10.0-20.0 Serum Glucose 109 H 74-106 mg/dL Calcium Level 9.8 8.7-10.4 mg/dL Urine Color Light-yellow Yellow Urine Clarity Clear Clear Urine pH 7.0 5.0-9.0 Urine Specific [place] 1.016 1.001-1.035 Urine Protein Negative Negative Urine Ketones Negative Negative Urine Blood Negative Negative /uL Urine Nitrite Negative Negative Urine Bilirubin Negative Negative Urine Urobilinogen Normal Negative mg/dL Urine Leukocyte Esterase Negative Negative /uL Urine RBC None seen 0 - 4 /hpf Urine Microscopic WBC 1 0-5 /HPF Urine Squamous Epithelial Cells Few <5 /hpf Urine Bacteria None seen None Seen /hpf Urine Glucose Normal Normal mg/dL Troponin I High Sensitivity 4 </=34 ng/L Test 03/08/25 09:48 Range/Units White Blood Count 4.8 4.4-10.8 10^3/uL Red Blood Count 4.27 4.0-5.20 10^6/uL Hemoglobin 13.7 12.2-16.2 g/dL Hematocrit 41.1 36.0-46.0 % Mean Corpuscular Volume 96.3 80.0-100.0 fL Mean Corpuscular Hemoglobin 32.1 H 28.0-32.0 pg Mean Corpuscular Hemoglobin Concent 33.3 32.0-36.0 g/dL Red Cell Distribution Width 14.9 H 11.8-14.3 % Platelet Count 275 140-450 10^3/uL Mean Platelet Volume 8.1 6.9-10.8 fL Neutrophils (%) (Auto) 60.4 37.0-80.0 % Lymphocytes (%) (Auto) 30.9 10.0-50.0 % Monocytes (%) (Auto) 7.5 0.0-12.0 % Eosinophils (%) (Auto) 0.9 0.0-7.0 % Basophils (%) (Auto) 0.3 0.0-2.0 % Neutrophils # (Auto) 2.9 1.6-8.6 10 ^3/uL Lymphocytes # (Auto) 1.5 0.4-5.4 10 ^3/uL Monocytes # (Auto) 0.4 0-1.3 10 ^3/uL Eosinophils # (Auto) 0 0-0.8 10 ^3/uL Basophils # (Auto) 0 0-0.2 10 ^3/uL Nucleated Red Blood Cells 0.1 % Assessment 1. Chest pain rule out for cardiac disease Differential diagnosis includes musculoskeletal versus GI versus other Diabetes Hyperlipidemia Hypertension Problems(with codes): (1) Musculoskeletal chest pain (2) Chest pain of unknown etiology Plan/Recommendation 1. Patient may be discharged home when stable 2. Proton pump inhibitor twice daily 3. Outpatient follow up with GI and schedule for EGD format if the patient is discharged 4. Anti-reflux precautions, elevate head of the bed, chew food thoroughly, avoid caffeine spicy food alcohol tomatoes citrus 5. Avoid aspirin NSAIDs 6. Consider gastroparesis or musculoskeletal causes Plan discussed with: Patient OTF DE LA VEGA MD Mar 09, 2025 16:03
[2025-03-09] MEDS: MAALOX PLUS or MAALOX 30 ML PO PRN (18:22)
[2025-03-09] MEDS: PANTOPRAZOLE 40 MG/10 ML VIAL INJ IV SCH (21:47)
[2025-03-10 01:00] VITALS: BP 108/51; PULSE 60; RESP 18; TEMP 98; O2SAT 97
[2025-03-10 05:00] VITALS: BP 136/62; PULSE 64; RESP 18; TEMP 98; O2SAT 96
[2025-03-10 08:00] VITALS: PULSE 47; PULSE 60; RESP 15; O2SAT 96
[2025-03-10 09:00] VITALS: BP 118/59; PULSE 49; RESP 18; TEMP 97.8; O2SAT 96
[2025-03-10] MEDS ORDERED: PANT40TA2 PO (11:24)
--- NOTE | 2025-03-10 12:14 | DVHDS2 ---
Discharge Summary Date of Admission Mar 08, 2025 at 12:01 Date of Discharge: Mar 10, 2025 Admitting Diagnosis Chest pain rule out ACS Labs/Diagnostic Data: Laboratory Results Test 03/10/25 06:31 03/09/25 05:42 03/08/25 14:10 03/08/25 10:45 POC Glucose 131 mg/dl (70-106) Sodium Level 141 mmol/L (136-145) Potassium Level 3.5 mmol/L (3.5-5.1) Chloride Level 102 mmol/L (98-107) Carbon Dioxide Level 30 mmol/L (20-31) Anion Gap 9 (5-15) Blood Urea Nitrogen 11 mg/dL (9-23) Creatinine 0.97 mg/dL (0.550-1.02) Glomerular Filtration Rate Calc 64 mL/min (>90) BUN/Creatinine Ratio 11.3 (10.0-20.0) Serum Glucose 109 mg/dL (74-106) Calcium Level 9.8 mg/dL (8.7-10.4) Urine Color Light-yellow (Yellow) Urine Clarity Clear (Clear) Urine pH 7.0 (5.0-9.0) Urine Specific [place] 1.016 (1.001-1.035) Urine Protein Negative (Negative) Urine Ketones Negative (Negative) Urine Blood Negative /uL (Negative) Urine Nitrite Negative (Negative) Urine Bilirubin Negative (Negative) Urine Urobilinogen Normal mg/dL (Negative) Urine Leukocyte Esterase Negative /uL (Negative) Urine RBC None seen /hpf (0 - 4) Urine Microscopic WBC 1 /HPF (0-5) Urine Squamous Epithelial Cells Few /hpf (<5) Urine Bacteria None seen /hpf (None Seen) Urine Glucose Normal mg/dL (Normal) Troponin I High Sensitivity 4 ng/L (</=34) Test 03/08/25 09:48 White Blood Count 4.8 10^3/uL (4.4-10.8) Red Blood Count 4.27 10^6/uL (4.0-5.20) Hemoglobin 13.7 g/dL (12.2-16.2) Hematocrit 41.1 % (36.0-46.0) Mean Corpuscular Volume 96.3 fL (80.0-100.0) Mean Corpuscular Hemoglobin 32.1 pg (28.0-32.0) Mean Corpuscular Hemoglobin Concent 33.3 g/dL (32.0-36.0) Red Cell Distribution Width 14.9 % (11.8-14.3) Platelet Count 275 10^3/uL (140-450) Mean Platelet Volume 8.1 fL (6.9-10.8) Neutrophils (%) (Auto) 60.4 % (37.0-80.0) Lymphocytes (%) (Auto) 30.9 % (10.0-50.0) Monocytes (%) (Auto) 7.5 % (0.0-12.0) Eosinophils (%) (Auto) 0.9 % (0.0-7.0) Basophils (%) (Auto) 0.3 % (0.0-2.0) Neutrophils # (Auto) 2.9 10 ^3/uL (1.6-8.6) Lymphocytes # (Auto) 1.5 10 ^3/uL (0.4-5.4) Monocytes # (Auto) 0.4 10 ^3/uL (0-1.3) Eosinophils # (Auto) 0 10 ^3/uL (0-0.8) Basophils # (Auto) 0 10 ^3/uL (0-0.2) Nucleated Red Blood Cells 0.1 % Other Laboratory Tests 03/09/25 05:42 03/08/25 09:48 Brief Hx & Hospital Course: History of Present Illness 64-year-old female presents for evaluation of chest pain. Patient reports developing substernal nonradiating chest pressure with associated shortness for breath palpitations. No nausea or vomiting. Course of hospitalization: Further interview with the patient reveals that chest pain has without any symptoms. Patient has worse during the day. She also reports having accompanying mucus buildup causing her cough. Chest x-ray was unremarkable. Troponins are negative. Patient had extensive cardiac workup including stress test in coronary angiogram proximally two years ago. With patient was placed on PPI with her symptoms improving. Gastroenterology consultation was obtained. Patient is requesting to be discharged home with current medical treatment and to follow up with GI as an outpatient. She will be prescribed Protonix 40 mg p.o. b.i.d. for the next 30 days. She will continue all previous home medications. Physical examination General: Alert and Oriented x3. No acute distress. Well-nourished. Eyes: EOMI. Anicteric. HENT: Moist mucous membranes. Lungs: Clear to auscultation bilaterally. No accessory muscle use. Cardiovascular: Regular rate and rhythm. No murmur. No JVD. Abdomen: Soft, non-tender and non-distended. No palpable masses. Extremities: No edema. Non-tender. Skin: No rashes or lesions. Warm. Neurologic: No focal neurological deficits. CN II-XII grossly intact, but not individually tested. Psychiatric: Cooperative. Appropriate mood and affect. Total time spent with patient discussing and formulating plan of care: 35 minutes. This medical document was created using an electronic medical record system with [employer] dictation system. Although this document has been carefully reviewed, there may still be some phonetic and typographical errors. These areas are purely typographical due to imperfections of the software programs, and do not reflect any compromise in the patient's medical care. Consults/Reason for consult Gastroenterology: Abdominal pain Condition at Discharge: Fair Final Diagnosis/Problems List Chest pain secondary to probable PUD -obesity -primary hypertension -diabetes mellitus -dyslipidemia Discharge Disposition: Home Discharge Instruct/Medications Diet: Regular Activity: No Restrictions, As Tolerated Follow Up/Referral: Follow up with PCP in 1-2 weeks Follow up with molder hand at earliest convenience Medications: Continue all home Protonix 40 mg p.o. b.i.d. times 30 days Scheduled Aspirin (Aspir-Low), 81 MG PO DAILY, (Reported) Atorvastatin Calcium (Atorvastatin Calcium), 1 TAB PO DAILY, (Reported) Azithromycin (Zithromax Tablet), 250 MG PO DAILY Hydrochlorothiazide (Hydrochlorothiazide), 12.5 MG PO HS, (Reported) Hydrochlorothiazide (Hydrochlorothiazide), 1 CAP PO DAILY, (Reported) Losartan Potassium (Losartan Potassium), 25 MG PO HS, (Reported) Losartan Potassium (Losartan Potassium), 25 MG PO DAILY, (Reported) Metformin Hydrochloride (Metformin Hcl), 0.5 TAB PO HS, (Reported) Metformin Hydrochloride (Metformin Hcl), 500 MG PO DAILY, (Reported) Pantoprazole Sodium Sesquihydr (Protonix), 40 MG PO BID Simvastatin (Simvastatin), 20 MG PO HS, (Reported) Scheduled PRN Ibuprofen Micronized (Ibuprofen), 800 MG PO TID PRN Promethazine-Dm (Promethazine Dm 6.25-15 mg/5Ml), 5 ML PO TID PRN 36 Discharge Statement: "Patient was advised to return to the ER or call 911 if any headaches, dizziness, shortness of breath, chest pain, abdominal pain, bleeding, fevers, or worsening of medical condition. Patient was counseled about treatment plan, medications, possible side effects, patientverbalized understanding. All questions were answered to the best of my ability. This discharge took greater then 30 minutes in planning, reviewing documentation, counseling the patient, and discussing with other team members." ASSESSMENT ASSESSMENT Assessment Chest pain secondary to probable PUD Date of Service: Mar 10, 2025 Billing Provider: KRISTEN NAILS NP Common Visit Codes: 24369-BZZ/OBS DISCH DAY >30min KRISTEN NAILS NP Mar 10, 2025 12:14
== END 2025-03-10 12:48 | disposition home or self-care (01) | DRG 384 ==
LOC: ER 09:22 → OVERFLOW 12:01 → TELE-EAST 18:10
PROVIDERS: ADMIT Nurse Practitioner Acute Care; ATTEND Nurse Practitioner Acute Care
DX: K27.9 Peptic ulcer, site unspecified, unspecified as acute or chronic, without hemorrhage or perforation (principal); E11.9 Type 2 diabetes mellitus without complications; I10 Essential (primary) hypertension; E78.5 Hyperlipidemia, unspecified; F41.9 Anxiety disorder, unspecified; K21.9 Gastro-esophageal reflux disease without esophagitis; E66.9 Obesity, unspecified; Z90.49 Acquired absence of other specified parts of digestive tract; Z68.34 Body mass index [BMI] 34.0-34.9, adult; Z90.710 Acquired absence of both cervix and uterus; Z79.899 Other long term (current) drug therapy
CPT/HCPCS: 36415; 71045; 80048; 81001; 82962; 84484; 85025; 93005; 93306; G0378; J1815; J2470